=== PATIENT | female | born 1980 | race Caucasian/White ===

== ENCOUNTER 2016-10-26 15:11 | Emergency (ER) | payer MEDICAID ==
[~2016-10-26] VITALS: Ht 165.1 cm; Wt 104.3 kg
[~2016-10-26 15:11] MED LIST: BUTA1CAP45 PO; DOCU100C37 PO; HYDR-757 PO; IBUP-1773 PO; ONDA4TAB8 PO; ONDA4TAB8 SL; ONDA8TAB9 PO; OXYC-465 PO; PREN-98 PO; PROM25SU43 RC; PROM25TA14 PO; ZOLM5TAB8 PO
[2016-10-26] MEDS ORDERED: DEPAKOTE (15:29)
[2016-10-26] MEDS ORDERED: SUMA50TA2 (15:29)
[2016-10-26] MEDS ORDERED: PROMETHAZINE INJ 25 MG/ML (PHENERGAN) AMP IVP STA (15:36)
[2016-10-26] MEDS ORDERED: diphenhydrAMINE 50 MG/ML INJ (BENADRYL) IV STA (15:36)
[2016-10-26] MEDS ORDERED: DEXAMETHASONE PF 10 MG/ML (DECADRON) VIAL IV STA (15:36)
--- NOTE | 2016-10-26 15:41 | ED Headache ---
General Chief Complaint: Head/Cervical Problems Stated Complaint: MIGRAINE Nursing Triage Note: PT TO ED 9 W/ C/O [place] ONSET THIS AM. DOES C/O SENSITIVITY TO LIGHT ET SOUND, N/V Nursing Sepsis Screen: No Definite Risk Source: patient Exam Limitations: no limitations (SARAH VALDEZ MD) History of Present Illness Time seen by provider: 15:30 Initial Comments Here with complaint of headache and photophobia that is typical for her migraines. She has not had one in some time. She states that it usually is improved with her typical home medicines but not today. She started her period last night and thinks that may be the cause as it typically was previously. States that Zofran and Toradol increase her headache and asked not to have those. Denies fever or chills. Reports vomiting and does have some nausea. Timing/Duration: 1-3 hours Severity/Quality: moderate, severe, pressure, throbbing Location: frontal Prior Headaches/Recent Trauma: occasional headaches Associated Symptoms: No confusion, No facial pain, No fever/chills, nausea/ vomitingNo nasal congestion, No sinus infection, No stiff neck, No vision changes, No weakness (SARAH VALDEZ MD) Allergies and Home Medications Allergies Coded Allergies: Penicillins (Verified Allergy, Unknown, 12/02/05) aspirin (Verified Allergy, Unknown, 12/02/05) Uncoded Allergies: ADHESIVE TAPE (Allergy, Unknown, 03/06/06) Home Medications (Reported) Promethazine HCl 25 Mg Tablet #10 25 MG PO Q6H PRN PRN NAUSEA/VOMITING Prescribed by: SUMI JUAREZ on 10/26/16 182 Sumatriptan Succinate 50 Mg Tablet #9 (Reported) Constitutional: see HPINo chills, No fever Eyes: See HPIDenies Decreased Acuity, Photophobia Ears, Nose, Mouth, Throat: no symptoms reported Respiratory: no symptoms reported Cardiovascular: no symptoms reported Gastrointestinal: see HPI nausea vomiting Genitourinary: no symptoms reported LMP: Oct 25, 2016 Musculoskeletal: no symptoms reported (SARAH VALDEZ MD) All Other Systems Reviewed Negative Unless Noted: Yes (SARAH VALDEZ MD) Past Nqzaipy-Rwvbxl-Tfpebg Hx Patient Social History Alcohol Use: Denies Use Recreational Drug Use: No Smoking Status: Never a Smoker Recent Foreign Travel: No Contact w/Someone Who Travel: No Recent Infectious Disease Expo: No Recent Hopitalizations: No Physical Abuse Screen: No Sexual Abuse: No (SARAH VALDEZ MD) Immunizations Up To Date Tetanus Booster (TDap): Unknown PED Vaccines UTD: No (SARAH VALDEZ MD) Surgeries HX Surgeries: Yes (D AND C, EGD) (SARAH VALDEZ MD) Respiratory Hx Respiratory Disorders: No (SARAH VALDEZ MD) Cardiovascular Hx Cardiac Disorders: No (SARAH VALDEZ MD) Neurological Hx Neurological Disorders: Yes Neurological Disorders: Headaches /Migraines (SARAH VALDEZ MD) 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 System Hx 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 Disorders: No Sexually Transmitted Disease: No HIV/AIDS: No Female 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 (SARAH VALDEZ MD) Genitourinary Hx Genitourinary Disorders: No (SARAH VALDEZ MD) Gastrointestinal Hx Gastrointestinal Disorders: No (SARAH VALDEZ MD) Musculoskeletal Hx Musculoskeletal Disorders: No (SARAH VALDEZ MD) Endocrine Hx Endocrine Disorders: No (SARAH VALDEZ MD) HEENT HX ENT Disorders: No (SARAH VALDEZ MD) Cancer Hx Cancer: No (SARAH VALDEZ MD) Psychosocial Hx Psychiatric Problems: No (SARAH VALDEZ MD) Integumentary HX Skin/Integumentary Disorder: No (SARAH VALDEZ MD) Blood Transfusions Hx Blood Disorders: No Adverse Reaction to a Blood Tr: No (SARAH VALDEZ MD) Reviewed Nursing Assessment Reviewed/Agree w Nursing PMH: Yes (SARAH VALDEZ MD) Family Medical History Significant Family History: No Pertinent Family Hx Family Medial History: Diabetes mellitus 19 MOTHER Hypertension 19 MOTHER (SARAH VALDEZ MD) Family Medial History: Diabetes mellitus 19 MOTHER Hypertension 19 MOTHER (SUMI HILL MD) Physical Exam Vital Signs Vital Sign - Last 12Hours 10/26/16 15:18 Temp 97.3 Pulse 72 Resp 20 B/P 130/71 Pulse Ox 97 O2 Delivery Room Air (SUMI HILL MD) Vital Signs Capillary Refill : Less Than 3 Seconds (SARAH VALDEZ MD) General Appearance: WD/WN no apparent distress HEENT: PERRL/EOMI pharynx normal Neck: full range of motion supple Cardiovascular: regular rate, rhythm no murmur Respiratory: lungs clear no accessory muscle use Gastrointestinal: non tender soft Back: normal inspection no CVA tenderness no vertebral tenderness Extremities: non-tender normal inspection Psychiatric: alert oriented x 3 Crainal Nerves: normal hearing normal speech PERRL Coordination/Gait: normal gait Motor/Sensory: no motor deficit no sensory deficit Skin: normal color warm/dry (SARAH VALDEZ MD) Progress/Results/Core Measures Results/Orders My Orders Orders-SUMI HILL MD Hydrocodone/Apap 5/325 Tablet (Lortab 5 (10/26/16 18:30) (SUMI HILL MD) Medications Given in ED Current Medications Medications Dose Ordered Sig/Jamal Route Start Time Stop Time Status Last Admin Dose Admin Fentanyl Citrate 50 mcg ONCE ONCE IVP 10/26/16 17:45 10/26/16 17:46 DC 10/26/16 17:44 50 MCG Promethazine HCl 12.5 mg ONCE ONCE IVP 10/26/16 17:45 10/26/16 17:46 DC 10/26/16 17:43 12.5 MG Sodium Chloride 1,000 ml @ 0 mls/hr Q0M ONCE IV 10/26/16 15:36 10/26/16 15:39 DC 10/26/16 17:11 1,000 MLS/HR (SUMI HILL MD) Medications Given in ED Current Medications Medications Dose Ordered Sig/Jamal Route Start Time Stop Time Status Last Admin Dose Admin Sodium Chloride 1,000 ml @ 0 mls/hr Q0M ONCE IV 10/26/16 15:36 10/26/16 15:39 DC 10/26/16 15:44 1,000 MLS/HR (SARAH VALDEZ MD) Vital Signs/I&O Vital Sign - Last 12Hours 10/26/16 15:18 Temp 97.3 Pulse 72 Resp 20 B/P 130/71 Pulse Ox 97 O2 Delivery Room Air (SUMI HILL MD) Blood Pressure Mean: 90 Progress Note : Progress Note Seen and evaluated. IV, normal saline 1 L bolus, Phenergan 25 mg IV, Benadryl 50 mg IV and Decadron 10 mg IV ordered. Monitor patient. (SARAH VALDEZ MD) Progress Note #1: Time: 18:20 Progress Note This patient was initially seen and cared for by Dr. Valdez who transfered care to Dr. Ling. The initial IM medications provided insufficient relief. There were initial IV access problems but an IV was eventually established. Additional medications and IV fluids were ordered. Patient is feeling significantly improved at this time. She believes she can return home and rest. When her IV fluids are complete, she will be discharged. An additional hydrocodone will be provided before dismissal to help her get through the evening. Progress Note #2: Time: 18:38 Progress Note Patient is now complaining of worsening headache and nausea. She wants IV pain medications. An additional dose of fentanyl 50 g and Reglan 5 mg be administered IV. (SUMI HILL MD) Departure Impression Impression: Primary Impression: Migraine headache Qualified Code: G43.909 - Migraine, unspecified, not intractable, without status migrainosus Additional Impression: Nausea and vomiting Qualified Code: R11.2 - Nausea with vomiting, unspecified Disposition: 01 HOME, SELF-CARE Condition: Improved Departure-Patient Inst. Decision time for Depature: 20:20 (SUMI HILL MD) Referrals: YOVANY LA MD (PCP/Family) Primary Care Physician Patient Instructions: Migraine Headache (DC) Add. Discharge Instructions: Continue with your treatment plan as previously directed by your neurologist. Follow-up with your neurologist and/or primary care provider as soon as possible. Return to the ER if symptoms worsen. All discharge instructions reviewed with patient and/or family. Voiced understanding. Scripts Promethazine HCl (Promethazine Tablet)25 Mg [id number] Mg PO Q6H PRN NAUSEA/ VOMITING #10 TAB Prov:SUMI HILL MD 10/26/16 SARAH VALDEZ MD Oct 26, 2016 15:41 SUMI HILL MD Oct 26, 2016 18:26
[2016-10-26] MEDS: NS IV 1000 ML 1,000 ML IV ONE ×3 (15:44→17:11)
[2016-10-26] MEDS ORDERED: fentaNYL INJECTION 100 MCG/2 ML AMP ONE (17:38)
[2016-10-26] MEDS ORDERED: PROMETHAZINE INJ 25 MG/ML (PHENERGAN) AMP IVP ONE (17:45)
[2016-10-26] MEDS ORDERED: fentaNYL INJECTION 100 MCG/2 ML AMP IVP ONE ×2 (17:45→18:45)
[2016-10-26] MEDS ORDERED: PROM25TA14 PO (18:26)
[2016-10-26] MEDS ORDERED: HYDROcodone/APAP 5 MG/325 MG (LORTAB) TAB PO ONE (18:30)
[2016-10-26] MEDS ORDERED: METOCLOPRAMIDE INJ 10 MG/2 ML (REGLAN) IVP ONE (18:45)
[2016-10-26 19:09] VITALS: BP 120/72
== END 2016-10-26 19:09 | disposition home or self-care (01) ==
LOC: EDUNIT# 15:11 → ER 15:12
DX: G43.909 Migraine, unspecified, not intractable, without status migrainosus (principal); R11.2 Nausea with vomiting, unspecified
CPT/HCPCS: 96361; 96372; 96374; 96375; 96376

== ENCOUNTER 2016-11-23 09:44 | Emergency (ER) | payer MEDICAID ==
[~2016-11-23] VITALS: Ht 165.1 cm; Wt 104.3 kg
[~2016-11-23 09:44] MED LIST changes: +DEPAKOTE; +SUMA50TA2
[2016-11-23] MEDS ORDERED: IBUP-1780 PO (10:01)
[2016-11-23] MEDS ORDERED: ACET325T38 PO (10:01)
[2016-11-23] MEDS ORDERED: NS IV 1000 ML 1,000 ML IV ONE (10:13)
[2016-11-23] MEDS ORDERED: fentaNYL INJECTION 100 MCG/2 ML AMP IVP ONE ×2 (10:15→11:30)
[2016-11-23] MEDS ORDERED: diphenhydrAMINE 50 MG/ML INJ (BENADRYL) IVP ONE (10:15)
[2016-11-23] MEDS ORDERED: PROMETHAZINE INJ 25 MG/ML (PHENERGAN) AMP IVP ONE ×2 (10:15→11:30)
--- NOTE | 2016-11-23 11:43 | ED Headache ---
General Chief Complaint: Head/Cervical Problems Stated Complaint: MIGRAINE/VOMITING Nursing Triage Note: c/o "migraine" headache. Onset 0330 this morning. Describes pain as stabbing and is present behind left eye. Nausea/vomiting. Pt awake, alert, and active. Nursing Sepsis Screen: No Definite Risk Exam Limitations: no limitations History of Present Illness Time seen by provider: 10:08 Initial Comments This 35-year-old young lady with a history of migraines woke this morning with intense headache as 03:00. She has associated nausea and vomiting. She took Imitrex at home without benefit. She also took ibuprofen 800 mg at approximately 05:30. She reports her neurologist recently took her off Depakote because it was felt to be increasing headaches. She stopped 2 days ago. She was to replace Depakote with Neurontin but she has not had a chance to fill that medication yet. Allergies and Home Medications Allergies Coded Allergies: Penicillins (Verified Allergy, Unknown, 12/02/05) aspirin (Verified Allergy, Unknown, 12/02/05) ondansetron (Verified Allergy, Unknown, 11/23/16) Claims Zofran makes her "vomit more" ketorolac (Unverified Adverse Reaction, Unknown, 11/23/16) Claims Toradol intensifies migraine Uncoded Allergies: ADHESIVE TAPE (Allergy, Unknown, 03/06/06) Home Medications Acetaminophen 325 Mg Tablet 620 MG PO (Reported) Ibuprofen 800 Mg Tablet 800 MG PO Q8H PRN PRN PAIN (Reported) Sumatriptan Succinate 50 Mg Tablet #9 (Reported) Constitutional: no symptoms reported Eyes: No Symptoms Reported Ears, Nose, Mouth, Throat: no symptoms reported Respiratory: no symptoms reported Cardiovascular: no symptoms reported Gastrointestinal: see HPI Genitourinary: no symptoms reported : No Musculoskeletal: no symptoms reported Skin: no symptoms reported Psychiatric/Neurological: See HPI Past Hdtqada-Suhrfg-Kbucxx Hx Patient Social History Alcohol Use: Denies Use Recreational Drug Use: No Smoking Status: Never a Smoker Recent Foreign Travel: No Contact w/Someone Who Travel: No Recent Infectious Disease Expo: No Recent Hopitalizations: No Immunizations Up To Date Tetanus Booster (TDap): Unknown PED Vaccines UTD: No Surgeries HX Surgeries: Yes (D AND C, EGD) Surgeries: Tubal Ligation Respiratory Hx Respiratory Disorders: No Cardiovascular Hx Cardiac Disorders: No Neurological Hx Neurological Disorders: Yes Neurological Disorders: Headaches /Migraines 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 System : No (LMP now) Hx 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 Disorders: No Sexually Transmitted Disease: No HIV/AIDS: No Female 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 Genitourinary Hx Genitourinary Disorders: No Gastrointestinal Hx Gastrointestinal Disorders: No Musculoskeletal Hx Musculoskeletal Disorders: No Endocrine Hx Endocrine Disorders: No HEENT HX ENT Disorders: No Cancer Hx Cancer: No Psychosocial Hx Psychiatric Problems: No Integumentary HX Skin/Integumentary Disorder: No Blood Transfusions Hx Blood Disorders: No Adverse Reaction to a Blood Tr: No Family Medical History Significant Family History: No Pertinent Family Hx Family Medial History: Diabetes mellitus 19 MOTHER Hypertension 19 MOTHER Physical Exam Vital Signs Vital Sign - Last 12Hours 11/23/16 09:52 Temp 97.6 Pulse 65 Resp 16 B/P 129/76 Pulse Ox 100 Capillary Refill : Less Than 3 Seconds General Appearance: WD/WN mild distress HEENT: PERRL/EOMI normal ENT inspection pharynx normal Neck: normal inspection Cardiovascular: regular rate, rhythm no edema no murmur Respiratory: lungs clear normal breath sounds no respiratory distress no accessory muscle use Gastrointestinal: normal bowel sounds soft Extremities: normal inspection no pedal edema Psychiatric: alert oriented x 3 Crainal Nerves: normal hearing normal speech PERRL Motor/Sensory: no motor deficit no sensory deficit Skin: normal color warm/dry Progress/Results/Core Measures Results/Orders My Orders Orders-SUMI HILL MD Promethazine Injection (Phenergan Injec (11/23/16 10:15) Diphenhydramine Injection (Benadryl Inje (11/23/16 10:15) Fentanyl Injection (Sublimaze Injection (11/23/16 10:15) Saline Lock/Iv-Start (11/23/16 10:13) Ns Iv 1000 Ml (Sodium Chloride 0.9%) (11/23/16 10:13) Promethazine Injection (Phenergan Injec (11/23/16 11:30) Fentanyl Injection (Sublimaze Injection (11/23/16 11:30) Gabapentin Capsule/Tablet (Neurontin Cap (11/23/16 12:15) Methylprednisolone Sod Succ (Solu-Medrol (11/23/16 12:15) Medications Given in ED Current Medications Medications Dose Ordered Sig/Jamal Route Start Time Stop Time Status Last Admin Dose Admin Diphenhydramine HCl 25 mg ONCE ONCE IVP 11/23/16 10:15 11/23/16 10:16 DC 11/23/16 10:29 25 MG Fentanyl Citrate 50 mcg ONCE ONCE IVP 11/23/16 11:30 11/23/16 11:31 DC 11/23/16 11:28 50 MCG Fentanyl Citrate 50 mcg 50 mcg ONCE ONCE IVP 11/23/16 10:15 11/23/16 10:16 DC 11/23/16 10:29 50 MCG Promethazine HCl 25 mg ONCE ONCE IVP 11/23/16 10:15 11/23/16 10:16 DC 11/23/16 10:29 25 MG Promethazine HCl 25 mg ONCE ONCE IVP 11/23/16 11:30 11/23/16 11:31 DC 11/23/16 11:28 25 MG Sodium Chloride 1,000 ml @ 0 mls/hr Q0M ONCE IV 11/23/16 10:13 11/23/16 10:15 DC 11/23/16 10:30 1,000 MLS/HR Vital Signs/I&O Vital Sign - Last 12Hours 11/23/16 11/23/16 11/23/16 09:52 10:29 11:28 Temp 97.6 97.6 97.6 Pulse 65 Resp 16 B/P 129/76 Pulse Ox 100 Blood Pressure Mean: 93 Progress Note #1: Time: 11:38 Progress Note Patient had received Phenergan 25 mg, Benadryl 25 mg, fentanyl 50 g, and about 500 mL of normal saline. Despite these measures she still complained of headache and was vomiting. She maintains that Toradol and Zofran make her symptoms worse. Another 25 mg of Phenergan was ordered along with another 50 g of fentanyl. Progress Note #2: Time: 12:12 Progress Note Symptoms are now much improved. Patient will be given a dose of Solu-Medrol to help prevent rebound of headache. She will also be started on the gabapentin as prescribed by her neurologist. Departure Impression Impression: Primary Impression: Migraine headache Qualified Code: G43.909 - Migraine, unspecified, not intractable, without status migrainosus Additional Impression: Nausea and vomiting Qualified Code: R11.2 - Nausea with vomiting, unspecified Disposition: 01 HOME, SELF-CARE Condition: Improved Departure-Patient Inst. Decision time for Depature: 12:10 Referrals: YOVANY LA MD (PCP/Family) Primary Care Physician Patient Instructions: Migraine Headache (DC) Add. Discharge Instructions: Return home and rest in a quiet, dark, calm environment for the rest of the day. You may continue to use ibuprofen and Imitrex as previously prescribed. Stay well-hydrated. Contact your neurologist for further questions or concerns about your migraines. All discharge instructions reviewed with patient and/or family. Voiced understanding. Scripts Promethazine HCl (Promethazine Tablet)25 Mg [id number] Mg PO Q6H PRN NAUSEA/ VOMITING #10 TAB Prov:SUMI HILL MD 11/23/16 SUMI HILL MD Nov 23, 2016 11:43
[2016-11-23] MEDS ORDERED: methylPREDNISolone 125 MG (Solu-MEDROL) VIAL IVP ONE (12:15)
[2016-11-23] MEDS ORDERED: GABAPENTIN 100 MG (NEURONTIN) CAP PO ONE (12:15)
[2016-11-23] MEDS ORDERED: PROM25TA14 PO (12:16)
[2016-11-23 12:17] VITALS: BP 124/83
== END 2016-11-23 12:47 | disposition home or self-care (01) ==
LOC: EDUNIT# 09:44 → ER 09:46
DX: G43.909 Migraine, unspecified, not intractable, without status migrainosus (principal); R11.2 Nausea with vomiting, unspecified
CPT/HCPCS: 96361; 96374; 96375; 96376

== ENCOUNTER 2017-02-10 23:49 | Inpatient (IN) | payer MEDICAID ==
[~2017-02-10] VITALS: Ht 165.1 cm; Wt 107.6 kg
[~2017-02-10 23:49] MED LIST changes: +ACET325T38 PO; +IBUP-1780 PO; -SUMA50TA2; +SUMA50TA2 PO
[2017-02-11] MEDS ORDERED: LACTATED RINGERS 1,000 ML IV ONE ×3 (00:02→12:02)
[2017-02-11] MEDS ORDERED: PANTOPRAZOLE 40 MG/10 ML (PROTONIX) VIAL ONE (00:13)
[2017-02-11] MEDS ORDERED: HYOSCYAMINE 0.125 MG (LEVSIN) TAB ONE ×2 (00:13→00:14)
[2017-02-11 00:18] LABS: BASOPHILS % (AUTO) 0 % (0-10); EOSINOPHILS % (AUTO) 0 % (0-10); LYMPHOCYTES # (AUTO) 4.3 X 10^3 (1.0-4.0); LYMPHOCYTES % (AUTO) 22 % (12-44); MEAN CORPUSCULAR HEMOGLOBIN 27 PG (25-34); MEAN CORPUSCULAR HGB CONC 33 G/DL (32-36); MEAN CORPUSCULAR VOLUME 81 FL (80-99); MEAN PLATELET VOLUME 10.8 FL (7.4-10.4); MONOCYTES # (AUTO) 1.1 X 10^3 (0.0-1.0); MONOCYTES % (AUTO) 5 % (0-12); NEUTROPHILS # (AUTO) 14.6 X 10^3 (1.8-7.8); NEUTROPHILS % (AUTO) 73 % (42-75); PLATELET COUNT 314 10^3/uL (130-400); RED BLOOD COUNT 4.93 10^6/uL (4.35-5.85); WHITE BLOOD COUNT 20.1 10^3/uL (4.3-11.0)
[2017-02-11] MEDS ORDERED: KETOROLAC 30 MG/ML VIAL IVP ONE (00:30)
[2017-02-11] MEDS ORDERED: HYOSCYAMINE 0.125 MG (LEVSIN) TAB PO ONE (00:30)
[2017-02-11] MEDS ORDERED: PANTOPRAZOLE 40 MG/10 ML (PROTONIX) VIAL IV ONE (00:30)
[2017-02-11 00:35] LABS: BILIRUBIN,URINE NEGATIVE (NEGATIVE); CALCIUM OXALATE CRYSTALS,UR MODERATE /LPF; KETONES,URINE 1+ (NEGATIVE); LEUKOCYTE ESTERASE ,URINE 1+ (NEGATIVE); NITRITE,URINE NEGATIVE (NEGATIVE); PH,URINE 5 (5-9); PROTEIN,URINE 1+ (NEGATIVE); UROBILINOGEN,URINE 1 MG/DL (NORMAL); WBC,URINE 0-2 /HPF
[2017-02-11 00:38] LABS: ALANINE AMINOTRANSFERASE 22 U/L (0-55); ALBUMIN 3.9 G/DL (3.2-4.5); AMYLASE 36 U/L (25-125); ANION GAP 12 MMOL/L (5-14); ASPARTATE AMINO TRANSFERASE 19 U/L (5-34); BILIRUBIN,TOTAL 0.3 MG/DL (0.1-1.0); BLOOD UREA NITROGEN 14 MG/DL (7-18); BUN/CREATININE RATIO 18; CALCIUM 9.5 MG/DL (8.5-10.1); CARBON DIOXIDE 21 MMOL/L (21-32); CHLORIDE 110 MMOL/L (98-107); CREATININE SERUM 0.78 MG/DL (0.60-1.30); GFR ESTIMATED > 60; GLUCOSE 115 MG/DL (70-105); LIPASE 45 U/L (8-78); POTASSIUM 3.8 MMOL/L (3.6-5.0); SODIUM 143 MMOL/L (135-145); TOTAL PROTEIN 6.5 G/DL (6.4-8.2)
[2017-02-11 00:39] LABS: ALCOHOL < 10 MG/DL (<10); LYMPHOCYTES % (MANUAL) 22 %; NEUTROPHILS % (MANUAL) 74 %
--- NOTE | 2017-02-11 00:51 | ED Abdominal Pain ---
General Chief Complaint: Abdominal/GI Problems Stated Complaint: UPPER AB PAIN Nursing Triage Note: pt reports having mothers day meat at approx 1800 and epigastric pain starting at 2029. states pain is sharp and constant, and has vomit x 1. denies diarrhea or any other complaints at this time. pt brought to exam room per wc, moaning in pain. Sepsis Screen: No Definite Risk Source of Information: Patient History of Present Illness Time Seen By Provider: 23:59 Initial Comments PT C/O SEVERE UPPER ABDOMINAL / EPIGASTRIC PAIN SINCE 2029 TONIGHT PAIN IS SHARP AND CONSTANT ATE HOT DOGS AND [employer]Q BEANS AT 1830 TONIGHT C/O NAUSEA AND VOMITED X 1 NO DIARRHEA. HAD A NORMAL BM EARLIER TODAY NO FEVER NO URINARY SYMPTOMS LMP--BEGAN YESTERDAY AND CONTINUES TODAY. PT HAS HAD BTL NO HISTORY OF SIMILAR NO RELIEF WITH TUMS PT WITH MULTIPLE VISITS HERE WELL OTHER LOCAL ER'S --MOST FOR C/O HEADACHES PT STATES SHE HAD 2 TEETH PULLED ON Saturday02/08/17 AND THEN WENT TO [facility] THAT NIGHT FOR POST-EXTRACTION DENTAL PAIN PCP: DR. LA NEUROLOGIST: DR. DEE Allergies and Home Medications Allergies Coded Allergies: Penicillins (Verified Allergy, Unknown, 12/02/05) aspirin (Verified Allergy, Unknown, 12/02/05) Uncoded Allergies: ADHESIVE TAPE (Allergy, Unknown, 03/06/06) Home Medications Sumatriptan Succinate 50 Mg Tablet, #9 (Reported) Review of Systems Constitutional: no symptoms reported EENTM: Other (HAD 2 TEETH PULLED ON Saturday02/08/17) Respiratory: No Symptoms Reported Cardiovascular: No Symptoms Reported Gastrointestinal: See HPI, Abdominal Pain, Nausea, Vomiting Genitourinary: No Symptoms Reported Musculoskeletal: no symptoms reported Skin: no symptoms reported Psychiatric/Neurological: No Symptoms Reported Endocrine: No Symptoms Reported Hematologic/Lymphatic: No Symptoms Reported Past Twmccrf-Lpvxhk-Tbhoqg Hx Patient Social History Alcohol Use: Denies Use Recreational Drug Use: No Smoking Status: Never a Smoker 2nd Hand Smoke Exposure: No Recent Foreign Travel: No Contact w/Someone Who Travel: No Recent Infectious Disease Expo: No Recent Hopitalizations: No Immunizations Up To Date Tetanus Booster (TDap): Unknown PED Vaccines UTD: No Surgeries HX Surgeries: Yes (D AND C, EGD) Surgeries: Tubal Ligation Respiratory Hx Respiratory Disorders: No Cardiovascular Hx Cardiac Disorders: No Neurological Hx Neurological Disorders: Yes Neurological Disorders: Headaches /Migraines 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 System : No Hx 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 Disorders: No Sexually Transmitted Disease: No HIV/AIDS: No Female 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 Genitourinary Hx Genitourinary Disorders: No Gastrointestinal Hx Gastrointestinal Disorders: No Musculoskeletal Hx Musculoskeletal Disorders: No Endocrine Hx Endocrine Disorders: No HEENT HX ENT Disorders: No Cancer Hx Cancer: No Psychosocial Hx Psychiatric Problems: No Integumentary HX Skin/Integumentary Disorder: No Blood Transfusions Hx Blood Disorders: No Adverse Reaction to a Blood Tr: No Family Medical History Family Medial History: Diabetes mellitus 19 MOTHER Hypertension 19 MOTHER Physical Exam Vital Signs VS - Last 72 Hours, by Label 02/10/17 23:52 Temp 98.7 Pulse 91 Resp 20 B/P (MAP) 114/86 O2 Delivery Room Air Capillary Refill : Less Than 3 Seconds General Appearance: obese, other (EXTREMELY DRAMATIC--WAILING/MOANING VERY LOUDLY, THRASHING ALL OVER, HOLDING EPIGASTRIC AREA) HEENT: PERRL/EOMI Neck: normal inspection Respiratory: normal breath sounds, no respiratory distress, no accessory muscle use Cardiovascular: regular rate, rhythm, no murmur Gastrointestinal: normal bowel sounds, soft, no organomegaly, no pulsatile mass , No distended, guarding, No rebound, tenderness (DIFFUSE UPPER ABDOMINAL TENDERNESS), No hernia, No mass Extremities: normal inspection Back: no CVA tenderness 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, no motor/sensory deficits, alert, oriented x 3 Skin: normal color, warm/dry, No rash Progress/Results/Core Measures Results/Orders Lab Results Laboratory Tests Test 02/11/17 00:12 02/11/17 00:19 Range/Units White Blood Count 20.1 H 4.3-11.0 10^3/uL Red Blood Count 4.93 4.35-5.85 10^6/uL Hemoglobin 13.3 11.5-16.0 G/DL Hematocrit 40 35-52 % Mean Corpuscular Volume 81 80-99 FL Mean Corpuscular Hemoglobin 27 25-34 PG Mean Corpuscular Hemoglobin Concent 33 32-36 G/DL Red Cell Distribution Width 14.0 10.0-14.5 % Platelet Count 314 130-400 10^3/uL Mean Platelet Volume 10.8 H 7.4-10.4 FL Neutrophils (%) (Auto) 73 42-75 % Lymphocytes (%) (Auto) 22 12-44 % Monocytes (%) (Auto) 5 0-12 % Eosinophils (%) (Auto) 0 0-10 % Basophils (%) (Auto) 0 0-10 % Neutrophils # (Auto) 14.6 H 1.8-7.8 X 10^3 Lymphocytes # (Auto) 4.3 H 1.0-4.0 X 10^3 Monocytes # (Auto) 1.1 H 0.0-1.0 X 10^3 Eosinophils # (Auto) 0.0 0.0-0.3 10^3/uL Basophils # (Auto) 0.0 0.0-0.1 10^3/uL Neutrophils % (Manual) 74 % Lymphocytes % (Manual) 22 % Monocytes % (Manual) 4 % Blood Morphology Comment NORMAL Sodium Level 143 135-145 MMOL/L Potassium Level 3.8 3.6-5.0 MMOL/L Chloride Level 110 H 98-107 MMOL/L Carbon Dioxide Level 21 21-32 MMOL/L Anion Gap 12 5-14 MMOL/L Blood Urea Nitrogen 14 7-18 MG/DL Creatinine 0.78 0.60-1.30 MG/DL Estimat Glomerular Filtration Rate > 60 BUN/Creatinine Ratio 18 Glucose Level 115 H 70-105 MG/DL Calcium Level 9.5 8.5-10.1 MG/DL Total Bilirubin 0.3 0.1-1.0 MG/DL Aspartate Amino Transf (AST/SGOT) 19 5-34 U/L Alanine Aminotransferase (ALT/SGPT) 22 0-55 U/L Alkaline Phosphatase 80 40-136 U/L Total Protein 6.5 6.4-8.2 G/DL Albumin 3.9 3.2-4.5 G/DL Amylase Level 36 25-125 U/L Lipase 45 8-78 U/L Serum Alcohol < 10 <10 MG/DL Urine Color YELLOW Urine Clarity SLIGHTLY CLOUDY Urine pH 5 5-9 Urine Specific [place] 1.025 H 1.016-1.022 Urine Protein 1+ H NEGATIVE Urine Glucose (UA) NEGATIVE NEGATIVE Urine Ketones 1+ H NEGATIVE Urine Nitrite NEGATIVE NEGATIVE Urine Bilirubin NEGATIVE NEGATIVE Urine Urobilinogen 1 NORMAL MG/DL Urine Leukocyte Esterase 1+ H NEGATIVE Urine RBC (Auto) 5+ H NEGATIVE Urine RBC 2-5 H /HPF Urine WBC 0-2 /HPF Urine Squamous Epithelial Cells 10-25 H /HPF Urine Crystals PRESENT H /LPF Urine Calcium Oxalate Crystals MODERATE H /LPF Urine Bacteria TRACE /HPF Urine Casts NONE /LPF Urine Mucus NEGATIVE /LPF Urine Culture Indicated NO Urine Opiates Screen POSITIVE H NEGATIVE Urine Oxycodone Screen NEGATIVE NEGATIVE Urine Methadone Screen NEGATIVE NEGATIVE Urine Propoxyphene Screen NEGATIVE NEGATIVE Urine Barbiturates Screen NEGATIVE NEGATIVE Ur Tricyclic Antidepressants Screen NEGATIVE NEGATIVE Urine Phencyclidine Screen NEGATIVE NEGATIVE Urine Amphetamines Screen NEGATIVE NEGATIVE Urine Methamphetamines Screen NEGATIVE NEGATIVE Urine Benzodiazepines Screen NEGATIVE NEGATIVE Urine Cocaine Screen NEGATIVE NEGATIVE Urine Cannabinoids Screen NEGATIVE NEGATIVE My Orders Orders - IRIS SEXTON K DO Saline Lock/Iv-Start (02/11/17 00:02) Urine Bedside (02/11/17 00:02) Alcohol (02/11/17 00:02) Amylase (02/11/17 00:02) Cbc With Automated Diff (02/11/17 00:02) Comprehensive Metabolic Panel (02/11/17 00:02) Drug Screen Stat (Urine) (02/11/17 00:02) Lipase (02/11/17 00:02) Ua Culture If Indicated (02/11/17 00:02) Saline Lock/Iv-Start (02/11/17 00:02) Lactated Ringers (Lr 1000 Ml Iv Solution (02/11/17 00:02) Hyoscyamine Sl Tablet (Levsin Sl Tablet) (02/11/17 00:30) Pantoprazole Injection (Protonix Injecti (02/11/17 00:30) Pantoprazole Injection (Protonix Injecti (02/11/17 00:13) Hyoscyamine Sl Tablet (Levsin Sl Tablet) (02/11/17 00:13) Hyoscyamine Sl Tablet (Levsin Sl Tablet) (02/11/17 00:14) Manual Differential (02/11/17 00:12) Ketorolac Injection (Toradol Injection) (02/11/17 00:30) Ct Abdomen/Pelvis W (02/11/17 00:29) Acute Abd Series (02/11/17 00:29) Fentanyl Injection (Sublimaze Injection (02/11/17 02:24) Fentanyl Injection (Sublimaze Injection (02/11/17 03:03) Fentanyl Injection (Sublimaze Injection (02/11/17 03:15) Medications Given in ED Current Medications Medications Dose Ordered Sig/Jamal Route Start Time Stop Time Status Last Admin Dose Admin Fentanyl Citrate 50 mcg ONCE ONCE IVP 02/11/17 03:15 02/11/17 03:16 DC 02/11/17 03:04 50 MCG Hyoscyamine Sulfate 0.25 mg ONCE ONCE PO 02/11/17 00:30 02/11/17 00:31 DC 02/11/17 00:21 0.25 MG Ketorolac Tromethamine 30 mg ONCE ONCE IVP 02/11/17 00:30 02/11/17 00:31 DC 02/11/17 00:36 30 MG Lactated Ringer's 1,000 ml @ 0 mls/hr Q0M ONCE IV 02/11/17 00:02 02/11/17 00:05 DC 02/11/17 00:22 0 MLS/HR Pantoprazole 40 mg ONCE ONCE IV 02/11/17 00:30 02/11/17 00:31 DC 02/11/17 00:21 40 MG Vital Signs/I&O Vital Sign - Last 12Hours 02/10/17 23:52 Temp 98.7 Pulse 91 Resp 20 B/P (MAP) 114/86 O2 Delivery Room Air Blood Pressure Mean: 95 Point of Care Testing Urine -Bedside: Negative Progress Note : Progress Note NAUSEA IMPROVED WITH ZOFRAN NO IMPROVEMENT IN PAIN WITH TORADOL AND FENTANYL MODERATE IMPROVEMENT IN PAIN WITH MORPHINE, BUT PAIN IS STILL PRESENT Diagnostic Imaging Comments CT ABDOMEN/PELVIS--DISTENDED GALLBLADDER, WITHOUT SECONDARY INFLAMMATORY CHANGES --PER [facility] VIA FAX @ [id number] Reviewed: Reviewed by Me Departure Communication Progress Notes [id number]--SPOKE WITH DR. REYNA, ACCEPTS PT FOR ADMIT. Impression Impression: Primary Impression: Biliary colic Additional Impression: Intractable abdominal pain Disposition: ADMITTED INPATIENT Condition: Improved Decision to Admit Reason: Admit from ER (General) Decision to Admit/Date: February 11, 2017 Time/Decision to Admit Time: 03:30 Departure-Patient Inst. Referrals: YOVANY LA MD (PCP/Family) Primary Care Physician IRIS SEXTON DO February 11, 2017 00:51
[2017-02-11] MEDS ORDERED: fentaNYL INJECTION 100 MCG/2 ML AMP IVP STA ×2 (02:24→03:03)
[2017-02-11] MEDS ORDERED: fentaNYL INJECTION 100 MCG/2 ML AMP IVP ONE (03:15)
[2017-02-11] MEDS ORDERED: morphine INJ 10 MG/ML 1ML (SYR OR VIAL) ONE ×2 (03:32→08:10)
[2017-02-11] MEDS ORDERED: morphine INJ 10 MG/ML 1ML (SYR OR VIAL) IVP STA (03:33)
[2017-02-11 04:25] VITALS: BP 121/74
[2017-02-11] MEDS ORDERED: morphine INJ 5 MG/ML 1 ML VIAL IVP PRN (05:30)
[2017-02-11] MEDS: LACTATED RINGERS 1,000 ML IV SCH ×4 (05:37→23:33)
[2017-02-11] MEDS ORDERED: KETOROLAC 30 MG/ML VIAL IV PRN (06:30)
[2017-02-11] MEDS ORDERED: CATHETER FLUSH 10 ML SYR IV PRN (06:30)
[2017-02-11] MEDS: PANTOPRAZOLE 40 MG/10 ML (PROTONIX) VIAL IV SCH (07:30)
[2017-02-11 08:00] VITALS: BP 124/79
--- NOTE | 2017-02-11 08:11 | Diagnostic Imaging Report ---
INDICATION: Epigastric pain TECHNIQUE: Single view chest with supine and upright radiographs of the abdomen. CORRELATION STUDY: Chest 07/06/2016 FINDINGS: Frontal radiograph of the chest demonstrates no acute abnormality. Supine and upright radiographs of the abdomen demonstrates the bowel gas pattern to be unremarkable and without evidence for obstruction. No free air is seen under the diaphragms. No pathologic intraabdominal calcifications. Asymmetrically elevated right diaphragm. IMPRESSION: 1. Negative for acute cardiopulmonary abnormality. 2. Unremarkable appearing bowel gas pattern. Dictated by: Dictated on workstation # [id number]
--- NOTE | 2017-02-11 08:13 | Diagnostic Imaging Report ---
PROCEDURE: CT abdomen and pelvis with contrast. TECHNIQUE: Multiple contiguous axial images were obtained through the abdomen and pelvis after administration of intravenous contrast. INDICATION: Epigastric pain. CORRELATION STUDY: 07/06/2016 FINDINGS: LOWER THORAX: Clear. LIVER: Borderline enlarged with likely geographic areas of fatty infiltration. GALLBLADDER: Distended but without otherwise secondary inflammatory changes. SPLEEN: Unremarkable. PANCREAS: Unremarkable. ADRENAL GLANDS: Unremarkable. KIDNEYS: Normal configuration. No calcification or obstruction. ABDOMINAL AORTA: Unremarkable, nonaneurysmal. GASTROINTESTINAL TRACT: No obstruction or inflammation. Normal appendix. Small fat-containing umbilical hernia. URINARY BLADDER: Unremarkable. REPRODUCTIVE: Uterus and adnexa unremarkable. Probable cervical nabothian cyst. OSSEOUS STRUCTURES: No acute abnormality. IMPRESSION: 1. Negative for acute abnormality of the abdomen or pelvis. 2. Distended gallbladder without additional inflammatory changes to suggest acute cholecystitis. Clinical correlation is recommended. 3. Borderline hepatomegaly with hepatic steatosis. Dictated by: Dictated on workstation # [id number]
[2017-02-11] MEDS: ONDANSETRON 4 MG/2 ML (SDV) Z0FRAN IV PRN ×2 (08:18→18:17)
[2017-02-11] MEDS: morphine INJ 10 MG/ML 1ML (SYR OR VIAL) IV PRN ×3 (08:18→23:34)
[2017-02-11] MEDS ORDERED: BUP/EPI 0.5% 1:200,000 (SENSORCAINE) 30 ML VIAL ONE (09:27)
[2017-02-11] MEDS ORDERED: LACTATED RINGERS 1,000 ML IV PRN (10:31)
[2017-02-11] MEDS ORDERED: MIDAZOLAM 2 MG/2 ML (VERSED) VIAL ONE (10:32)
[2017-02-11] MEDS ORDERED: fentaNYL INJECTION 250 MCG/5 ML AMP ONE (10:32)
[2017-02-11] MEDS ORDERED: proPOfol 200 MG/20 ML (DIPRIVAN) VIAL IV ONE (10:32)
[2017-02-11] MEDS ORDERED: ONDANSETRON 4 MG/2 ML (SDV) Z0FRAN ONE (10:38)
[2017-02-11] MEDS ORDERED: SEVOFLURANE (ULTANE) 15 ML INHAL SOLN ONE (10:38)
[2017-02-11] MEDS ORDERED: ROCURONIUM 50 MG/5 ML (ZEMURON) VIAL IV ONE (10:38)
[2017-02-11] MEDS ORDERED: LIDOCAINE PF 2% 10 ML (XYLOCAINE) AMP ONE (10:38)
[2017-02-11] MEDS ORDERED: DEXAMETHASONE PF 10 MG/ML (DECADRON) VIAL ONE (10:38)
--- NOTE | 2017-02-11 10:55 | Progress Note-Pre Operative ---
Pre-Operative Progress Note H&P Reviewed The H&P was reviewed, patient examined and no changes noted. Date H&P Reviewed: February 11, 2017 Time H&P Reviewed: 10:00 Pre-Operative Diagnosis: Chronic acalculous cholecystitis BRANDIE REYNA MD February 11, 2017 10:55
--- NOTE | 2017-02-11 11:08 | HISTORY AND PHYSICAL ---
DATE OF SERVICE: 02/11/2017 ATTENDING PRIMARY CARE PHYSICIAN: Dr. Maxim Vazquez The patient is a 36-year-old female who presented to [facility] Emergency Department early this morning for abdominal pain. She reports that the pain was more in the right upper abdominal quadrant and was sharp and constant. She also had reported episodes of nausea and vomiting following eating a meal. She states that she may have had some milder symptoms in the past; however, she felt this more likely due to peptic ulcer disease. A CT can was performed which did show dilatation of the gallbladder consistent with a chronic acalculous cholecystitis. She also did have elevation of white count; however, also does have an urinary tract infection. PAST MEDICAL HISTORY: Migraine headaches. PAST SURGICAL HISTORY: Tubal ligation, D and C. ALLERGIES: PENICILLIN, ASPIRIN, SOME TAPES. MEDICATIONS: Sumatriptan 50 mg daily. SOCIAL HISTORY: Negative smoke, negative alcohol. FAMILY HISTORY: Noncontributory. VITAL SIGNS: Temperature 98.7, blood pressure 114/86, pulse 91, respirations 20. REVIEW OF SYSTEMS: Well nourished female, currently in no acute distress. She denies any, shortness of breath or difficulty breathing. No chest pain, palpitations or diaphoresis. Intermittent episodes of nausea, as well as an episode of vomiting. No hematemesis. No coffee ground emesis. No diarrhea, constipation. No red blood per rectum or dark tarry stools. No fever, chills. No recent inadvertent weight loss. PHYSICAL EXAMINATION: CHEST: Clear. HEART: Regular. EXTREMITIES: No lower extremity edema. Negative Prmaod's sign. HEENT: No scleral icterus. No cervical lymphadenopathy. ABDOMEN: Soft, nondistended. There is pain in the right upper abdominal quadrant upon palpation with voluntary guarding. No rebound. LABS: WBC 20.1, hemoglobin 13.3, hematocrit 40, platelets 314. Total bilirubin 0.3, AST 19, ALT 22, alkaline phosphatase 80. UA: Leukocyte esterase 1+ with trace amount of bacteria. ASSESSMENT AND PLAN: A 36-year-old female with symptomatic chronic acalculous cholecystitis. The natural history of gallbladder disease was explained to the patient as it was including the risks and benefits of surgery. She is in full understanding of this and would like to proceed with laparoscopic cholecystectomy on this admission which we will schedule. Job ID: [id number] DocumentID: [id number] Dictated Date: 02/11/2017 10:52:19 Plastic Surgery Manager Date: 02/11/2017 11:08:39 Dictated By: BRANDIE REYNA MD MTDD
[2017-02-11] MEDS ORDERED: ceFAZolin 2 GM/50 ML NS 50 ML IV ONE (11:15)
[2017-02-11] MEDS ORDERED: ceFAZolin 1,000 MG (ANCEF) VIAL ONE (11:20)
[2017-02-11] MEDS ORDERED: NEOSTIGMINE (BLOXIVERZ ) 1 MG/1ML 10 ML VIAL ONE (12:02)
[2017-02-11] MEDS ORDERED: GLYCOPYRROLATE 0.2 MG/ML (ROBINUL) 2 ML VIAL ONE (12:02)
[2017-02-11] MEDS ORDERED: MEPERIDINE (DEMEROL) INJ 50 MG/ML IVP PRN (13:00)
[2017-02-11] MEDS ORDERED: ONDANSETRON 4 MG/2 ML (SDV) Z0FRAN IVP PRN (13:00)
--- NOTE | 2017-02-11 13:03 | Progress Note-Post Operative ---
Post-Operative Progess Note Surgeon (s)/Cable Television Technician (s) Surgeon BRANDIE REYNA MD Cable Television Technician: NONE Pre-Operative Diagnosis Chronic acalculous cholecystitis Post-Operative Diagnosis same Procedure & Operative Findings Date of Procedure 02/11/17 Procedure Preformed/Findings laparoscopic cholecystectomy Anesthesia Type GET Estimated Blood Loss Estimated blood loss (mL): minimal Specimens/Packing Specimens Removed gallbladder Packing: none BRANDIE REYNA MD February 11, 2017 1:02 pm
[2017-02-11] MEDS ORDERED: OXYC-197 PO (13:07)
--- NOTE | 2017-02-11 13:08 | Discharge Inst-Surgical ---
D/C Lap Instructions-AXEL New, Converted, or Re-Newed RX: RX on Chart Follow Up Appt in 2 weeks Activity as tolerated No driving for 24 hours No driving while on pain medications Incentive Spirometry use every 2 hours while awake Regular Diet Symptoms to Report: Fever over 101 degree F, Nausea/Vomiting Infection Signs and Symptoms to report: Increased redness, Foul odor of wound, Increased drainage Bathing instructions: May shower Operative Area Clean/Dry; Keep incision clean/dry If any problems/questions: Contact your physician or go to Emergency Room BRANDIE REYNA MD February 11, 2017 1:08 pm
[2017-02-11] MEDS: morphine INJ 10 MG/ML 1ML (SYR OR VIAL) IVP PRN ×2 (13:13→13:18)
[2017-02-11] MEDS ORDERED: MEPERIDINE (DEMEROL) INJ 50 MG/ML ONE (13:17)
[2017-02-11] MEDS: CATHETER FLUSH 10 ML SYR IV SCH ×2 (13:27→22:03)
[2017-02-11 16:00] VITALS: BP 112/71
[2017-02-11] MEDS: oxyCODONE/APAP 5/325MG (PERCOCET 5) TABLET PO PRN ×2 (17:48→22:08)
[2017-02-11 20:00] VITALS: BP 107/66
[2017-02-12 00:20] VITALS: BP 100/64
[2017-02-12 04:15] VITALS: BP 112/68
--- NOTE | 2017-02-12 04:39 | OPERATIVE REPORT ---
DATE OF SERVICE: 02/11/2017 ATTENDING PRIMARY CARE PHYSICIAN: Dr. Maxim Vazquez. PREOPERATIVE DIAGNOSIS: Chronic acalculous cholecystitis. POSTOPERATIVE DIAGNOSIS: Chronic acalculous cholecystitis. PROCEDURE: Laparoscopic cholecystectomy. SURGEON: Dr. Reyna. ANESTHESIA: General endotracheal. ESTIMATED BLOOD LOSS: Minimal. FINDINGS: Mild chronic inflammation and distention of the gallbladder. No stones identified. DISPOSITION: The patient tolerated the procedure well. The patient is a 36-year-old female who presented to [facility] emergency department earlier this morning for abdominal pain. She reports that this was accompanied by an episode of nausea and vomiting. She reports that the pain was sharp and did radiate toward the back and was located mostly in the right upper abdominal quadrant. She states that she has had some mild episodes in the past; however, thought that this was mostly due to peptic ulcer disease. A CT scan was performed which did show a distended gallbladder consistent with a chronic acalculous cholecystitis. DESCRIPTION OF PROCEDURE: The patient was brought to the operating room, laid supine on the table. After adequate IV pain and sedative medications and general endotracheal intubation, the abdomen was prepped and draped in standard surgical fashion. Marcaine 0.5% with epinephrine was then used to anesthetize the overlying skin in the left upper abdominal quadrant. A small transverse skin incision made using a 15 blade. An 0 silk suture was applied to the medial aspect of the incision for retraction and a Veress needle inserted with a low opening pressure of 0 mmHg and the abdomen was then insufflated to 15 mmHg pressure. The Veress needle removed and a 5 mm Xcel trocar placed followed by a 5 mm 45 degree angle laparoscope visualizing the peritoneal cavity. A four-quadrant abdominal exploration was performed. A dilated gallbladder was identified as well as chronic inflammatory changes as well as edema of the gallbladder wall. Under direct visualization, we then proceeded to place a supraumbilical 10 mm port after the skin and peritoneum were anesthetized using 0.5% Marcaine with epinephrine and a transverse skin incision made using a 15 blade. In a similar manner, a right upper abdominal quadrant 5 mm port was placed. The patient was then placed in reverse Trendelenburg position as well as planed right side up, left side down. The fundus of the gallbladder was then retracted anteriorly and superiorly. The hepatoduodenal ligament was then opened using the hook instrument as well as electrocautery. The entire critical view of safety was identified by identifying the triangle of Calot as well as the cystic duct and artery going into the gallbladder as well as the liver behind the proximal gallbladder. the cystic duct was then taken and the cystic duct and artery were then clipped proximally and distally and cut with EndoShears. The gallbladder was then dissected off the liver bed using electrocautery on the hook instrument with visualization, good hemostasis as well as no leaking ducts of Luschka. The gallbladder was removed through the 10 mm port site using an EndoCatch bag. The 10 mm port site, fascia and peritoneum were then closed under direct visualization using a Ashish-Marlin device and an 0 Vicryl suture. Abdomen was desufflated and remaining ports removed. All skin incisions were closed using 4-0 Monocryl running subcuticular sutures. Wounds were then cleaned and covered with Dermabond. The patient tolerated the procedure well. We will start IV and oral pain medication as well as a clear liquid diet. Once she is tolerating clears and has good pain control with oral pain medications and ambulating well, we will discharge her home. Job ID: [id number] DocumentID: [id number] Dictated Date: 02/11/2017 13:12:26 Sliver Chopper Date: 02/12/2017 04:39:07 Dictated By: BRANDIE REYNA MD
[2017-02-12 05:27] LABS: BASOPHILS % (AUTO) 0 % (0-10); EOSINOPHILS % (AUTO) 0 % (0-10); LYMPHOCYTES # (AUTO) 2.1 X 10^3 (1.0-4.0); LYMPHOCYTES % (AUTO) 16 % (12-44); MEAN CORPUSCULAR HEMOGLOBIN 27 PG (25-34); MEAN CORPUSCULAR HGB CONC 32 G/DL (32-36); MEAN CORPUSCULAR VOLUME 84 FL (80-99); MEAN PLATELET VOLUME 10.9 FL (7.4-10.4); MONOCYTES # (AUTO) 0.7 X 10^3 (0.0-1.0); MONOCYTES % (AUTO) 6 % (0-12); NEUTROPHILS # (AUTO) 10.3 X 10^3 (1.8-7.8); NEUTROPHILS % (AUTO) 79 % (42-75); PLATELET COUNT 230 10^3/uL (130-400); RED BLOOD COUNT 3.97 10^6/uL (4.35-5.85); RED CELL DISTRIBUTION WIDTH 14.1 % (10.0-14.5); WHITE BLOOD COUNT 13.1 10^3/uL (4.3-11.0)
[2017-02-12 05:53] LABS: ALANINE AMINOTRANSFERASE 90 U/L (0-55); AMYLASE 31 U/L (25-125); ANION GAP 7 MMOL/L (5-14); ASPARTATE AMINO TRANSFERASE 94 U/L (5-34); BILIRUBIN,TOTAL 0.5 MG/DL (0.1-1.0); BLOOD UREA NITROGEN 13 MG/DL (7-18); BUN/CREATININE RATIO 18; CALCIUM 8.5 MG/DL (8.5-10.1); CARBON DIOXIDE 26 MMOL/L (21-32); CHLORIDE 108 MMOL/L (98-107); CREATININE SERUM 0.71 MG/DL (0.60-1.30); GFR ESTIMATED > 60; GLUCOSE 129 MG/DL (70-105); LIPASE 36 U/L (8-78); SODIUM 141 MMOL/L (135-145); TOTAL PROTEIN 5.1 G/DL (6.4-8.2)
[2017-02-12] MEDS: CATHETER FLUSH 10 ML SYR IV SCH (06:47)
[2017-02-12 07:59] VITALS: BP 86/52
[2017-02-12] MEDS: PANTOPRAZOLE 40 MG/10 ML (PROTONIX) VIAL IV SCH (08:01)
[2017-02-12] MEDS: oxyCODONE/APAP 5/325MG (PERCOCET 5) TABLET PO PRN (10:26)
--- NOTE | 2017-02-12 11:36 | Anesthesia-General Post-Op ---
General Patient Condition Mental Status/LOC: Same as Preop Cardiovascular: Satisfactory Nausea/Vomiting: Absent Respiratory: Satisfactory Pain: Controlled Complications: Absent Post Op Complications Complications None Follow Up Care/Instructions Patient Instructions None needed. Anesthesia/Patient Condition Patient Condition Patient is doing well, no complaints, stable vital signs, no apparent adverse anesthesia problems. No complications reported per nursing. MICHELE MCGRAW CRNA February 12, 2017 11:36
== END 2017-02-12 10:30 | disposition home or self-care (01) | DRG 419 ==
LOC: EDUNIT# 23:49 → ER 23:52 → 4TH 02-11 03:30
PROVIDERS: ADMIT Surgery Pediatric Surgery; ATTEND Surgery Pediatric Surgery
PROC: 0FT44ZZ Resection of Gallbladder, Percutaneous Endoscopic Approach (ICD-10-PCS; principal; 2017-02-11 11:10)
DX: K80.10 Calculus of gallbladder with chronic cholecystitis without obstruction (principal)
CPT/HCPCS: 36415; 74022; 74177; 80053; 80306; 80320; 81000; 82150; 83690; 84703; 85007; 85025; 85027; 96361; 96374; 96375; 96376

== ENCOUNTER 2017-02-23 21:10 | Day surgery (SDC) | payer MEDICAID ==
[~2017-02-23] VITALS: Ht 165.1 cm; Wt 106.3 kg
[~2017-02-23 21:10] MED LIST changes: +OXYC-197 PO
[2017-02-23] MEDS ORDERED: fentaNYL INJECTION 100 MCG/2 ML AMP IVP ONE (21:15)
[2017-02-23] MEDS ORDERED: ONDANSETRON 4 MG/2 ML (SDV) Z0FRAN ONE (21:16)
[2017-02-23] MEDS ORDERED: ONDANSETRON 4 MG/2 ML (SDV) Z0FRAN IVP ONE (21:30)
[2017-02-23] MEDS ORDERED: LIDOCAINE 2% VISCOUS 15 ML UDC ONE (21:39)
[2017-02-23] MEDS ORDERED: ONDANSETRON 4 MG (ZOFRAN) ORAL DISSOLVE TAB ONE (21:39)
[2017-02-23] MEDS ORDERED: ANTACID SUSP 30 ML UDC (MYLANTA) ONE (21:40)
--- NOTE | 2017-02-23 21:42 | ED Abdominal Pain ---
General Chief Complaint: Abdominal/GI Problems Stated Complaint: ABD PAIN Nursing Triage Note: Pt c/o abdominal pain, GB removed last Saturday. Sepsis Screen: No Definite Risk Source of Information: Patient, Old Records Exam Limitations: No Limitations History of Present Illness Time Seen By Provider: 21:11 Initial Comments This 36-year-old woman presents to the emergency room with complaints of epigastric pain that started this morning. Pain is severe and she is in distress. She tried taking Tums which was not helpful. She had a laparoscopic cholecystectomy performed for a calculus cholecystitis performed by Dr. Armando on February 11. She has associated nausea. No fever. She is writhing in pain making initial exam challenging. Allergies and Home Medications Allergies Uncoded Allergies: ADHESIVE TAPE (Allergy, Unknown, 03/06/06) Home Medications Oxycodone HCl/Acetaminophen 1 Each Tablet, 1-2 EACH PO Q4H, #35 Prescribed by: BRANDIE ARMANDO on 02/11/17 1307 Sumatriptan Succinate 50 Mg Tablet, 50 MG PO DAILY PRN PRN for MIGRAINE, ( Reported) Review of Systems Constitutional: no symptoms reported EENTM: No Symptoms Reported Respiratory: No Symptoms Reported Cardiovascular: No Symptoms Reported Gastrointestinal: See HPI Genitourinary: No Symptoms Reported Musculoskeletal: no symptoms reported Skin: no symptoms reported Psychiatric/Neurological: No Symptoms Reported Endocrine: No Symptoms Reported Past Ruzksec-Rmwufz-Fxgoyk Hx Patient Social History Alcohol Use: Denies Use Recreational Drug Use: No Smoking Status: Never a Smoker 2nd Hand Smoke Exposure: No Recent Foreign Travel: No Contact w/Someone Who Travel: No Recent Infectious Disease Expo: No Recent Hopitalizations: No Immunizations Up To Date Tetanus Booster (TDap): Unknown PED Vaccines UTD: No Seasonal Allergies Seasonal Allergies: No Surgeries HX Surgeries: Yes (D AND C, EGD) Surgeries: Gallbladder, Tubal Ligation Respiratory Hx Respiratory Disorders: No Cardiovascular Hx Cardiac Disorders: No Neurological Hx Neurological Disorders: Yes Neurological Disorders: Headaches /Migraines 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 System Hx 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 Disorders: No Sexually Transmitted Disease: No HIV/AIDS: No Female 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 EMERGENCY MEDCL EMT History: Tubal Ligation Genitourinary Hx Genitourinary Disorders: No Gastrointestinal Hx Gastrointestinal Disorders: No Musculoskeletal Hx Musculoskeletal Disorders: No Endocrine Hx Endocrine Disorders: No HEENT HX ENT Disorders: No Cancer Hx Cancer: No Psychosocial Hx Psychiatric Problems: No Integumentary HX Skin/Integumentary Disorder: No Blood Transfusions Hx Blood Disorders: No Adverse Reaction to a Blood Tr: No Family Medical History Family Medial History: Diabetes mellitus 19 MOTHER Hypertension 19 MOTHER Physical Exam Vital Signs VS - Last 72 Hours, by Label 02/23/17 02/23/17 21:16 22:20 Temp 97.2 97.2 Pulse 89 Resp 18 B/P (MAP) 151/97 Pulse Ox 98 Capillary Refill : Less Than 3 Seconds General Appearance: WD/WN, moderate distress HEENT: PERRL/EOMI, normal ENT inspection Respiratory: lungs clear, normal breath sounds, no respiratory distress, no accessory muscle use Cardiovascular: regular rate, rhythm, no edema, no murmur Gastrointestinal: normal bowel sounds, soft, tenderness (epigastrium) Extremities: normal inspection, no pedal edema Neurologic/Psychiatric: inseam trimmer II-XII nml as tested, no motor/sensory deficits, alert, normal mood/affect, oriented x 3 Skin: normal color, warm/dry Progress/Results/Core Measures Results/Orders Lab Results Laboratory Tests Test 02/23/17 22:24 02/23/17 23:31 Range/Units White Blood Count 12.2 H 4.3-11.0 10^3/uL Red Blood Count 4.75 4.35-5.85 10^6/uL Hemoglobin 12.7 11.5-16.0 G/DL Hematocrit 39 35-52 % Mean Corpuscular Volume 81 80-99 FL Mean Corpuscular Hemoglobin 27 25-34 PG Mean Corpuscular Hemoglobin Concent 33 32-36 G/DL Red Cell Distribution Width 13.4 10.0-14.5 % Platelet Count 347 130-400 10^3/uL Mean Platelet Volume 10.9 H 7.4-10.4 FL Neutrophils (%) (Auto) 66 42-75 % Lymphocytes (%) (Auto) 26 12-44 % Monocytes (%) (Auto) 7 0-12 % Eosinophils (%) (Auto) 1 0-10 % Basophils (%) (Auto) 0 0-10 % Neutrophils # (Auto) 8.1 H 1.8-7.8 X 10^3 Lymphocytes # (Auto) 3.1 1.0-4.0 X 10^3 Monocytes # (Auto) 0.8 0.0-1.0 X 10^3 Eosinophils # (Auto) 0.2 0.0-0.3 10^3/uL Basophils # (Auto) 0.0 0.0-0.1 10^3/uL Sodium Level 140 135-145 MMOL/L Potassium Level 3.8 3.6-5.0 MMOL/L Chloride Level 105 98-107 MMOL/L Carbon Dioxide Level 23 21-32 MMOL/L Anion Gap 12 5-14 MMOL/L Blood Urea Nitrogen 12 7-18 MG/DL Creatinine 0.76 0.60-1.30 MG/DL Estimat Glomerular Filtration Rate > 60 BUN/Creatinine Ratio 16 Glucose Level 106 H 70-105 MG/DL Calcium Level 9.9 8.5-10.1 MG/DL Total Bilirubin 0.4 0.1-1.0 MG/DL Aspartate Amino Transf (AST/SGOT) 21 5-34 U/L Alanine Aminotransferase (ALT/SGPT) 28 0-55 U/L Alkaline Phosphatase 95 40-136 U/L C-Reactive Protein High Sensitivity 1.37 H 0.00-0.50 MG/DL Total Protein 7.0 6.4-8.2 G/DL Albumin 3.9 3.2-4.5 G/DL Lipase 84 H 8-78 U/L Urine Color YELLOW Urine Clarity CLEAR Urine pH 6.5 5-9 Urine Specific [place] 1.010 L 1.016-1.022 Urine Protein 1+ H NEGATIVE Urine Glucose (UA) NEGATIVE NEGATIVE Urine Ketones NEGATIVE NEGATIVE Urine Nitrite NEGATIVE NEGATIVE Urine Bilirubin NEGATIVE NEGATIVE Urine Urobilinogen NORMAL NORMAL MG/DL Urine Leukocyte Esterase 1+ H NEGATIVE Urine RBC (Auto) NEGATIVE NEGATIVE Urine RBC NONE /HPF Urine WBC RARE /HPF Urine Squamous Epithelial Cells 5-10 /HPF Urine Crystals NONE /LPF Urine Bacteria TRACE /HPF Urine Casts NONE /LPF Urine Mucus NEGATIVE /LPF Urine Culture Indicated NO My Orders Orders - SUMI HILL MD Cbc With Automated Diff (02/23/17 21:12) Comprehensive Metabolic Panel (02/23/17 21:12) Lipase (02/23/17 21:12) Ua Culture If Indicated (02/23/17 21:12) Saline Lock/Iv-Start (02/23/17 21:12) Fentanyl Injection (Sublimaze Injection (02/23/17 21:15) Hs C Reactive Protein (02/23/17 21:17) Ondansetron Injection (Zofran Injectio (02/23/17 21:30) Ondansetron Injection (Zofran Injectio (02/23/17 21:16) Ondansetron Oral Dissolve Tab (Zofran (02/23/17 21:45) Lidocaine 2% Viscous 15 Ml (Xylocaine Vi (02/23/17 21:45) Antacid Suspension (Mylanta Suspension (02/23/17 21:45) Lidocaine 2% Viscous 15 Ml (Xylocaine Vi (02/23/17 21:39) Ondansetron Oral Dissolve Tab (Zofran (02/23/17 21:39) Antacid Suspension (Mylanta Suspension (02/23/17 21:40) Fentanyl Injection (Sublimaze Injection (02/23/17 22:00) Promethazine Injection (Phenergan Injec (02/23/17 22:00) Hydromorphone Injection (Dilaudid Inject (02/23/17 22:15) Ct Abdomen/Pelvis W (02/23/17 22:26) Iohexol Injection (Omnipaque 350 Mg/Ml 1 (02/23/17 23:00) Ns (Ivpb) (Sodium Chloride 0.9% Ivpb Bag (02/23/17 23:00) Ns Iv 1000 Ml (Sodium Chloride 0.9%) (02/23/17 23:04) Us Hepatic (Liver)[id number] (02/23/17 23:30) Hydromorphone Injection (Dilaudid Inject (02/23/17 23:42) Medications Given in ED Current Medications Medications Dose Ordered Sig/Jamal Route Start Time Stop Time Status Last Admin Dose Admin Al Hydrox/Mg Hydrox/Simethicone 30 ml ONCE ONCE PO 02/23/17 21:45 02/23/17 21:46 DC 02/23/17 21:45 30 ML Fentanyl Citrate 100 mcg ONCE ONCE IM 02/23/17 22:00 02/23/17 22:01 DC 02/23/17 21:58 100 MCG Fentanyl Citrate 100 mcg ONCE ONCE IVP 02/23/17 21:15 02/23/17 21:16 DC 02/23/17 23:25 100 MCG Iohexol 100 ml ONCE ONCE IV 02/23/17 23:00 02/23/17 23:01 DC 02/23/17 22:49 100 ML Lidocaine HCl 15 ml ONCE ONCE PO 02/23/17 21:45 02/23/17 21:46 DC 02/23/17 21:45 15 ML Ondansetron HCl 8 mg ONCE ONCE IVP 02/23/17 21:30 02/23/17 21:31 DC 02/24/17 01:33 8 MG Ondansetron HCl 8 mg ONCE ONCE SL 02/23/17 21:45 02/23/17 21:46 DC 02/23/17 21:45 8 MG Promethazine HCl 25 mg ONCE ONCE IM 02/23/17 22:00 02/23/17 22:01 DC 02/23/17 21:54 25 MG Sodium Chloride 100 ml ONCE ONCE IV 02/23/17 23:00 02/23/17 23:01 DC 02/23/17 22:49 80 ML Sodium Chloride 1,000 ml @ 0 mls/hr Q0M ONCE IV 02/23/17 23:04 02/23/17 23:05 DC 02/23/17 23:10 0 MLS/HR Vital Signs/I&O Vital Sign - Last 12Hours 02/23/17 02/23/17 21:16 22:20 Temp 97.2 97.2 Pulse 89 Resp 18 B/P (MAP) 151/97 Pulse Ox 98 Blood Pressure Mean: 115 Progress Note #1: Time: 21:46 Progress Note Labs and IV were ordered along with pain medications. However, multiple IV attempts by multiple nurses were not successful. Patient will be given sublingual Zofran and a GI cocktail as the pain is directly over the epigastrium. If this does not improve her pain, further workup will be pursued. Progress Note #2: Time: 22:25 Progress Note Zofran and GI cocktail did not resolve pain or nausea. Attempts at IV access will again be pursued. In the meantime, Dilaudid 2 mg IM will be administered as fentanyl did not control her pain. Progress Note #3: Time: 23:[address] scan has been reviewed by me. Report is pending. Patient complains of rebounding pain. Fentanyl 100 g IV has been ordered. Progress Note #4: Progress Note Patient continued to have pain throughout her ER visit and required multiple doses of narcotic medications. She also had rebounding nausea. Patient was seen by Dr. Becerril and CT scan was viewed by Dr. Becerril. Admission for observation and intractable abdominal pain was felt appropriate. Diagnostic Imaging Diagonstic Imaging: CT Plain Films/CT/US/NM/MRI: abdomen, pelvis Comments CT abdomen and pelvis viewed by me. Discussed with Dr. Becerril who also viewed the images. [facility] report reviewed. There was fluid in the gallbladder fossa which may be postoperative, infectious, or bile leakage. Fatty liver noted. No appendicitis, small bowel obstruction, or diverticulitis. No hydronephrosis. Diagonstic Imaging: Ultrasound Plain Films/CT/US/NM/MRI: abdomen Comments Liver ultrasound discussed with the police service technician and [employer] report reviewed. Cholecystectomy noted. Common bile duct not clearly visualized due to bowel gas. No right hydronephrosis. Departure Impression Impression: Primary Impression: Epigastric pain Additional Impressions: Intractable abdominal pain Nausea and vomiting Qualified Codes: R11.2 - Nausea with vomiting, unspecified Disposition: ADMITTED INPATIENT Condition: Improved Decision to Admit Reason: Admit from ER (General) Decision to Admit/Date: February 23, 2017 Time/Decision to Admit Time: 23:45 Departure-Patient Inst. Referrals: YOVANY LA MD (PCP/Family) Primary Care Physician SUMI HILL MD February 23, 2017 21:42
[2017-02-23] MEDS ORDERED: LIDOCAINE 2% VISCOUS 15 ML UDC PO ONE (21:45)
[2017-02-23] MEDS ORDERED: ONDANSETRON 4 MG (ZOFRAN) ORAL DISSOLVE TAB SL ONE (21:45)
[2017-02-23] MEDS ORDERED: ANTACID SUSP 30 ML UDC (MYLANTA) PO ONE (21:45)
[2017-02-23] MEDS ORDERED: PROMETHAZINE INJ 25 MG/ML (PHENERGAN) AMP IM ONE (22:00)
[2017-02-23] MEDS ORDERED: fentaNYL INJECTION 100 MCG/2 ML AMP IM ONE (22:00)
[2017-02-23] MEDS ORDERED: HYDROmorphone (DILAUDID) 2 MG/ML VIAL IM STA (22:15)
[2017-02-23 22:37] LABS: BASOPHILS % (AUTO) 0 % (0-10); EOSINOPHILS # (AUTO) 0.2 10^3/uL (0.0-0.3); EOSINOPHILS % (AUTO) 1 % (0-10); LYMPHOCYTES # (AUTO) 3.1 X 10^3 (1.0-4.0); LYMPHOCYTES % (AUTO) 26 % (12-44); MEAN CORPUSCULAR HEMOGLOBIN 27 PG (25-34); MEAN CORPUSCULAR HGB CONC 33 G/DL (32-36); MEAN CORPUSCULAR VOLUME 81 FL (80-99); MEAN PLATELET VOLUME 10.9 FL (7.4-10.4); MONOCYTES # (AUTO) 0.8 X 10^3 (0.0-1.0); MONOCYTES % (AUTO) 7 % (0-12); NEUTROPHILS # (AUTO) 8.1 X 10^3 (1.8-7.8); NEUTROPHILS % (AUTO) 66 % (42-75); PLATELET COUNT 347 10^3/uL (130-400); RED BLOOD COUNT 4.75 10^6/uL (4.35-5.85); RED CELL DISTRIBUTION WIDTH 13.4 % (10.0-14.5); WHITE BLOOD COUNT 12.2 10^3/uL (4.3-11.0)
[2017-02-23 22:57] LABS: ALANINE AMINOTRANSFERASE 28 U/L (0-55); ALBUMIN 3.9 G/DL (3.2-4.5); ANION GAP 12 MMOL/L (5-14); ASPARTATE AMINO TRANSFERASE 21 U/L (5-34); BILIRUBIN,TOTAL 0.4 MG/DL (0.1-1.0); BLOOD UREA NITROGEN 12 MG/DL (7-18); BUN/CREATININE RATIO 16; CALCIUM 9.9 MG/DL (8.5-10.1); CARBON DIOXIDE 23 MMOL/L (21-32); CHLORIDE 105 MMOL/L (98-107); CREATININE SERUM 0.76 MG/DL (0.60-1.30); GFR ESTIMATED > 60; GLUCOSE 106 MG/DL (70-105); LIPASE 84 U/L (8-78); POTASSIUM 3.8 MMOL/L (3.6-5.0); SODIUM 140 MMOL/L (135-145); hs C REACTIVE PROTEIN 1.37 MG/DL (0.00-0.50)
[2017-02-23] MEDS ORDERED: NS 100 ML (IVPB) BAG IV ONE (23:00)
[2017-02-23] MEDS ORDERED: IOHEXOL 350 MG/ML 100 ML (OMNIPAQUE 350) VIAL IV ONE (23:00)
[2017-02-23] MEDS ORDERED: NS IV 1000 ML 1,000 ML IV ONE (23:04)
[2017-02-23 23:38] LABS: BILIRUBIN,URINE NEGATIVE (NEGATIVE); KETONES,URINE NEGATIVE (NEGATIVE); LEUKOCYTE ESTERASE ,URINE 1+ (NEGATIVE); NITRITE,URINE NEGATIVE (NEGATIVE); PH,URINE 6.5 (5-9); PROTEIN,URINE 1+ (NEGATIVE); UROBILINOGEN,URINE NORMAL (NORMAL)
[2017-02-23] MEDS ORDERED: HYDROmorphone (DILAUDID) 2 MG/ML VIAL IVP STA (23:42)
[2017-02-23 23:44] LABS: WBC,URINE RARE /HPF
[2017-02-24] MEDS ORDERED: HYDROmorphone (DILAUDID) 2 MG/ML VIAL IVP STA (01:28)
[2017-02-24 03:00] VITALS: BP 111/74
[2017-02-24] MEDS ORDERED: PANTOPRAZOLE 40 MG/10 ML (PROTONIX) VIAL ONE (03:13)
[2017-02-24] MEDS ORDERED: NS IV 1000 ML 1,000 ML ONE (03:13)
[2017-02-24] MEDS ORDERED: ONDANSETRON 4 MG/2 ML (SDV) Z0FRAN IV PRN (03:45)
[2017-02-24] MEDS: PANTOPRAZOLE 40 MG/10 ML (PROTONIX) VIAL IV SCH ×3 (03:49→21:13)
[2017-02-24] MEDS: NS IV 1000 ML 1,000 ML IV SCH ×3 (03:49→21:14)
[2017-02-24] MEDS: CATHETER FLUSH 10 ML SYR IV SCH ×3 (03:50→22:31)
[2017-02-24] MEDS: HYDROmorphone (DILAUDID) 2 MG/ML VIAL IV PRN ×2 (03:50→06:06)
[2017-02-24 04:42] LABS: BASOPHILS % (AUTO) 0 % (0-10); EOSINOPHILS # (AUTO) 0.1 10^3/uL (0.0-0.3); EOSINOPHILS % (AUTO) 1 % (0-10); LYMPHOCYTES # (AUTO) 2.4 X 10^3 (1.0-4.0); LYMPHOCYTES % (AUTO) 25 % (12-44); MEAN CORPUSCULAR HEMOGLOBIN 27 PG (25-34); MEAN CORPUSCULAR HGB CONC 33 G/DL (32-36); MEAN CORPUSCULAR VOLUME 83 FL (80-99); MEAN PLATELET VOLUME 10.7 FL (7.4-10.4); MONOCYTES # (AUTO) 0.8 X 10^3 (0.0-1.0); MONOCYTES % (AUTO) 8 % (0-12); NEUTROPHILS # (AUTO) 6.4 X 10^3 (1.8-7.8); NEUTROPHILS % (AUTO) 66 % (42-75); PLATELET COUNT 309 10^3/uL (130-400); RED BLOOD COUNT 4.47 10^6/uL (4.35-5.85); RED CELL DISTRIBUTION WIDTH 13.4 % (10.0-14.5); WHITE BLOOD COUNT 9.7 10^3/uL (4.3-11.0)
[2017-02-24 05:23] LABS: ALANINE AMINOTRANSFERASE 24 U/L (0-55); ALBUMIN 3.5 G/DL (3.2-4.5); AMYLASE 36 U/L (25-125); ANION GAP 9 MMOL/L (5-14); ASPARTATE AMINO TRANSFERASE 19 U/L (5-34); BILIRUBIN,TOTAL 0.4 MG/DL (0.1-1.0); BLOOD UREA NITROGEN 11 MG/DL (7-18); BUN/CREATININE RATIO 15; CALCIUM 9.2 MG/DL (8.5-10.1); CARBON DIOXIDE 24 MMOL/L (21-32); CHLORIDE 107 MMOL/L (98-107); CREATININE SERUM 0.73 MG/DL (0.60-1.30); GFR ESTIMATED > 60; GLUCOSE 101 MG/DL (70-105); LIPASE 44 U/L (8-78); POTASSIUM 3.8 MMOL/L (3.6-5.0); SODIUM 140 MMOL/L (135-145); TOTAL PROTEIN 6.3 G/DL (6.4-8.2)
[2017-02-24] MEDS ORDERED: SUMAtriptan 50 MG (IMITREX) TAB PO PRN (05:45)
[2017-02-24] MEDS: diphenhydrAMINE 50 MG/ML INJ (BENADRYL) IVP PRN ×4 (06:06→21:12)
[2017-02-24] MEDS: PROMETHAZINE INJ 25 MG/ML (PHENERGAN) AMP IVP PRN ×4 (06:06→21:13)
--- NOTE | 2017-02-24 07:30 | History & Physicial ---
History of Present Illness History of Present Illness Reason for visit/HPI EPIGASTRIC PAIN OF 24-HOUR DUR[address] CT scan negative for postoperative bile leak. laparoscopic cholecystectomy 12 days ago Date of Admission February 24, 2017 at 12:45 am I consulted on this patient on 02/24/17 07:27 Attending Physician Brandie Reyna MD Admitting Physician Maxim Vazquez MD Consult Allergies and Home Medications Allergies Uncoded Allergies: ADHESIVE TAPE (Allergy, Unknown, 03/06/06) Home Medications Oxycodone HCl/Acetaminophen 1 Each Tablet, 1-2 EACH PO Q4H, #35 Prescribed by: BRANDIE REYNA on 02/11/17 1307 Sumatriptan Succinate 50 Mg Tablet, 50 MG PO DAILY PRN PRN for MIGRAINE, ( Reported) Past Yqkcrbi-Jkbjqr-Cqswws Hx Patient Social History Employed/Student: employed Alcohol Use: Denies Use Recreational Drug Use: No Smoking Status: Never a Smoker 2nd Hand Smoke Exposure: No Physical Abuse Screen: No Sexual Abuse: No Recent Foreign Travel: No Contact w/other who traveled: No Recent Hopitalizations: Yes Recent Infectious Disease Expo: No Immunizations Up To Date Tetanus Booster (TDap): Unknown Seasonal Allergies Seasonal Allergies: No Surgeries HX Surgeries: Yes (D AND C, EGD) Surgeries: Gallbladder, Tubal Ligation Respiratory Hx Respiratory Disorders: No Cardiovascular Hx Cardiovascular Disorders: No Neurological Hx Neurological Disorders: Yes Neurological Disorders: Headaches /Migraines 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 System Hx 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 Disorders: No Sexually Transmitted Disease: No HIV/AIDS: No Female 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 Genitourinary Hx Genitourinary Disorders: No Gastrointestinal Hx Gastrointestinal Disorders: No Musculoskeletal Hx Musculoskeletal Disorders: No Endocrine Hx Endocrine Disorders: No HEENT HX ENT Disorders: No Cancer Hx Cancer: No Psychosocial Hx Psychiatric Problems: No Integumentary HX Skin/Integumentary Disorder: No Blood Transfusions Hx Blood Disorders: No Adverse Reaction to a Blood Tr: No Family Medical History Family Hx: Diabetes mellitus 19 MOTHER Hypertension 19 MOTHER Constitutional: malaise EENTM: no symptoms reported Respiratory: no symptoms reported Cardiovascular: no symptoms reported Gastrointestinal: abdominal pain (RUQ), nausea Genitourinary: no symptoms reported : No Musculoskeletal: back pain Skin: no symptoms reported Psychiatric/Neurological: No Symptoms Reported Physical Exam Vital Signs Vital Sign - Last 12Hours 02/23/17 21:16 Temp 97.2 Pulse 89 Resp 18 B/P (MAP) 151/97 Pulse Ox 98 Capillary Refill : Less Than 3 Seconds General Appearance: Severe Distress HEENT: TMs Normal Neck: Normal Inspection Respiratory: Lungs Clear Cardiovascular: Regular Rate, Rhythm Gastrointestinal: Soft, Tenderness Rectal: Deferred Extremity: Normal Inspection Neurologic/Psychiatric: Alert, Oriented x3 Skin: Warm/Dry Comments epigastric tenderness. Laparoscopic scars well healed Assessment/Plan Assessment and Plan lady with epigastric pain.. No bile leak. No pneumoperiton Gastritis versus peptic ulcer di Upper endoscopy would be reasonable and this would be performed this morning Problems: Admission Diagnosis epigastric abdominal pain Clinical Quality Measures DVT/VTE Risk/Contraindication: Risk Factor Score Per Nursin RFS Level Per Nursing on Admit: 2=Moderate EDIL DELGADO MD February 24, 2017 7:30 am
--- NOTE | 2017-02-24 07:30 | Conscious Sedation/ASA ---
Conscious Sedation Pre-Proced Time Reviewed: 07:30 ASA Class: 2 Airway Mallampati Classification: ([place] appropriate class) I. II. III, IV Lungs Heart ASA score ASA 1: a normal healthy patient ASA 2: a patient with a mild systemic disease (mid diabetes, controlled hypertension, obesity ASA 3: a patient with a severe systemic disease that limits activity (angina , COPD, prior Myocardial infarction) ASA 4: a patient with an incapacitating disease that is a constant threat to life (CHF, renal failure) ASA 5: a moribund patient not expected to survive 24 hrs. (ruptured aneurysm) ASA 6: a declared brain patient whose organs are being harvested. For emergent operations, add the letter E after the classification Grade 2 Sedation Plan: Discussed options with patient/fam Note The patient is an appropriate candidate to undergo the planned procedure, sedation, and anesthesia. The patient immediately re-assessed prior to indication. EDIL DELGADO MD February 24, 2017 7:30 am
--- NOTE | 2017-02-24 07:59 | Diagnostic Imaging Report ---
US HEPATIC (LIVER)[id number] TECHNIQUE: Grayscale and color Doppler imaging of the right upper quadrant was performed. INDICATION: Abdominal pain. History of cholecystectomy. COMPARISON: CT abdomen and pelvis performed 02/23/2017. FINDINGS: Liver demonstrates diffuse increased echogenicity indicative of hepatic steatosis. No discrete hepatic lesion, though evaluation is limited due to poor sound transmission from hepatic steatosis. Status post cholecystectomy. Fluid collection within the gallbladder fossa is poorly visualized due to hepatic steatosis. Common bile duct is obscured by overlying bowel gas. Pancreas is obscured by overlying bowel gas and better evaluated on recent CT. Right kidney is normal in size without hydronephrosis. IMPRESSION: 1. Diffuse hepatic steatosis. 2. The fluid collection in the gallbladder fossa seen on CT is not well visualized on this examination due to increased bowel gas and hepatic steatosis which limits sounds transmission through the liver. Please see CT abdomen and pelvis report from 02/23/2017 for more complete evaluation Dictated by: Dictated on workstation # [id number]
[2017-02-24 08:00] VITALS: BP 92/57
--- NOTE | 2017-02-24 08:13 | Diagnostic Imaging Report ---
PROCEDURE: CT abdomen and pelvis with contrast. TECHNIQUE: Multiple contiguous axial images were obtained through the abdomen and pelvis after administration of intravenous contrast. INDICATION: Cholecystectomy 02/11 now with pain. Exam compared to 02/11/2017. There is a clip at the gallbladder fossa. Adjacent to the clip is a regional edema and fluid without appreciable rim enhancement. When it is measured on the delayed images the hypodense region is roughly 3.7 x 1.6 cm. This may be some residual resorbing postoperative fluid however an infected collection cannot be entirely excluded in the appropriate scenario. Bilious collection would be an additional consideration in the appropriate scenario. There is however no bile duct dilatation and there is no abdominal pelvic free fluid. Spleen, adrenals and pancreas are within normal limits. The unobstructed kidneys appeared normal. The air-containing appendix normal. There is no diverticulitis. The uterus, adnexa and urinary bladder normal. IMPRESSION: Small amount of edema and fluid in the postoperative gallbladder fossa. Its sterility could not be confirmed by imaging. We do acknowledge this is not an uncommon finding at this stage post cholecystectomy. No convincing acute pathological finding at the study is revealed. Dictated by: Dictated on workstation # [id number]
[2017-02-24] MEDS ORDERED: fentaNYL INJECTION 100 MCG/2 ML AMP ONE (08:29)
[2017-02-24] MEDS ORDERED: MIDAZOLAM 2 MG/2 ML (VERSED) VIAL ONE ×4 (08:29)
[2017-02-24] MEDS ORDERED: NS IV 500 ML 500 ML ONE (08:29)
[2017-02-24] MEDS ORDERED: HURRICAINE EXT TUBE (BENZOCAINE) ONE (08:30)
[2017-02-24] MEDS ORDERED: NS IV 500 ML 500 ML IV PRN (08:50)
[2017-02-24] MEDS ORDERED: FAMOTIDINE 20MG/2ML IV (PEPCID) IV SCH (09:00)
--- NOTE | 2017-02-24 09:03 | Endoscopy Procedure Report ---
Endoscopy Report Date: February 24, 2017 Preoperative Diagnosis: epigastric pain Study Performed: Upper Endoscopy Procedure Instrument: Endoscope Endo Procedure/Findings Findings 1.: Hiatal Hernia, Gastritis, Other Findings Copy Copies To 1: BRANDIE REYNA MD Copies To 2: YOVANY LA MD, XAVIER M MD February 24, 2017 9:03 am
[2017-02-24] MEDS ORDERED: fentaNYL INJECTION 100 MCG/2 ML AMP IVP PRN (09:15)
[2017-02-24] MEDS ORDERED: HURRICAINE EXT TUBE (BENZOCAINE) XX PRN (09:15)
[2017-02-24] MEDS ORDERED: MIDAZOLAM 2 MG/2 ML (VERSED) VIAL IVP PRN (09:15)
[2017-02-24 09:35] VITALS: BP 110/64
[2017-02-24] MEDS: SUCRALFATE 1 GM (CARAFATE) TAB PO SCH ×2 (11:05→16:46)
[2017-02-24] MEDS: fentaNYL INJECTION 100 MCG/2 ML AMP IVP PRN ×2 (11:55→14:43)
[2017-02-24 12:00] VITALS: BP 113/69
[2017-02-24 16:06] VITALS: BP 117/77
[2017-02-24 19:23] VITALS: BP 121/57
[2017-02-24] MEDS: CATHETER FLUSH 10 ML SYR IV PRN (21:13)
--- NOTE | 2017-02-24 22:57 | OPERATIVE REPORT ---
DATE OF SERVICE: 02/24/2017 PROCEDURE: Upper GI endoscopy with antral biopsy. SURGEON: Edil Delgado MD INDICATION FOR PROCEDURE: This lady came in with acute epigastric pain of 24 hours' duration. Duodenal perforation was ruled out. In addition, with regard to a recent laparoscopic cholecystectomy, bile leak was ruled out as well. Since her pain continued, it was felt reasonable to perform an upper endoscopy. Informed consent was obtained after reviewing the procedures in detail. DESCRIPTION OF PROCEDURE: She was placed in left lateral decubitus position and her vital signs were monitored. Conscious sedation was achieved using Versed and fentanyl. The flexible gastroscope was then introduced down the esophagus, passed to the stomach, into the proximal duodenum. FINDINGS: ESOPHAGUS: Hiatal hernia with grade II esophagitis. STOMACH: 1. Diffuse gastritis. 2. A shallow erosion at the pyloric channel. Antral biopsy was obtained for Helicobacter status. DUODENUM: Changes of duodenitis involving the 1st part. She tolerated the procedure well and was taken back to the nursing area in stable condition. IMPRESSION: Acute epigastric pain. Diffuse gastritis. Esophagitis. Will treat conservatively. Job ID: [id number] DocumentID: [id number] Dictated Date: 02/24/2017 09:02:54 Dermatopathologist Date: 02/24/2017 11:55:20 Dictated By: EDIL DELGADO MD [facility]
[2017-02-25 00:17] VITALS: BP 107/63
[2017-02-25 04:21] VITALS: BP 114/75
[2017-02-25] MEDS: PROMETHAZINE INJ 25 MG/ML (PHENERGAN) AMP IVP PRN (06:04)
[2017-02-25] MEDS: CATHETER FLUSH 10 ML SYR IV SCH (06:05)
[2017-02-25] MEDS: NS IV 1000 ML 1,000 ML IV SCH (06:05)
[2017-02-25] MEDS: CATHETER FLUSH 10 ML SYR IV PRN (06:05)
[2017-02-25] MEDS: SUCRALFATE 1 GM (CARAFATE) TAB PO SCH (06:07)
[2017-02-25 08:00] VITALS: BP 101/59
[2017-02-25] MEDS: PANTOPRAZOLE 40 MG/10 ML (PROTONIX) VIAL IV SCH (08:50)
--- NOTE | 2017-02-25 09:14 | Progress Note-Standard ---
Standard Progress Note Progress Notes/Assess & Plan Progress/Assessment & Plan 02/25/17:abdominal pain improved. No tenderness on examination. Vital signs stable. Tolerating diet. Could be discharged Final Diagnosis acute gastritis EDIL DELGADO MD February 25, 2017 9:14 am
--- NOTE | 2017-02-25 09:16 | Discharge Inst-Simple/Standard ---
Discharge Inst-Standard Discharge Medications New, Converted or Re-Newed RX: Other Patient Instructions/Follow Up Plan of Care/Instructions/FU: please call for Carafate 1 g 3 times a day for 10 days to her pharmacy. No refill. Follow-up with Dr. Armando in one week Activity as Tolerated: Yes Discharge Diet: No Restrictions EDIL DELGADO MD February 25, 2017 9:16 am
[2017-02-25 11:05] VITALS: BP 101/59
== END 2017-02-25 11:20 | disposition home or self-care (01) ==
LOC: EDUNIT# 21:10 → ER 21:11 → 4TH 02-24 00:45 → UNDOADMOB 02-24 00:45 → 4TH 02-24 02:20 → SDC 02-24 02:20 → UNDODISOB 02-25 11:20
PROVIDERS: ATTEND Surgery
DX: K20.9 Esophagitis, unspecified (principal); K44.9 Diaphragmatic hernia without obstruction or gangrene; K29.70 Gastritis, unspecified, without bleeding; K25.9 Gastric ulcer, unspecified as acute or chronic, without hemorrhage or perforation; K29.80 Duodenitis without bleeding
CPT/HCPCS: 36415; 74177; 76705; 80053; 81000; 82150; 83690; 85025; 86141; 88305; 96361; 96372; 96374; 96375; 96376

== ENCOUNTER 2017-09-11 14:09 | Emergency (ER) | payer MEDICAID ==
[~2017-09-11] VITALS: Ht 165.1 cm; Wt 102.1 kg
--- OUTSIDE RECORDS SUMMARY | 2017-09-11 14:14 | XMS REPORT | Encounter Summary ---
Author Author [facility] Organization [facility] Address Unknown Phone Unavailable Care Team Providers Care Ballet Teacher Name Role Phone PCP Unavailable Reason for Referral * Pain Authorization Status Reason Specialty Diagnoses / Referred By Referred To Procedures Contact Contact No Auth Needed Neurology Diagnoses Lisa Naranjo MD [facility] Chronic migraine [address]ced[address] [place], [place] [address] Phone: Fax: Reason for Visit * Reason Comments Migraine Procedure BOTOX * Pain Authorization Status Reason Specialty Diagnoses / Referred By Referred To Procedures Contact Contact No Auth Needed Neurology Diagnoses Lisa Naranjo MD [facility] Chronic migraine [address] without aura [address] without status [place], [place], [place] migrainosus, not [place] [address] intractable Phone: Phone: P [phone] rocedures Fax: [place] [phone] [place] BOTULINUM TOXIN A PER UNIT Encounter Details Date Type Department Care Team Description 07/02/2017 Procedure visit [facility] Lisa Naranjo MD Chronic migraine (Primary Hospital Neurology [address] Dx) [address] [place] [address] [phone] Social History Tobacco Use Types Packs/Day Years Used Date Never Smoker Smokeless Tobacco: Never Used Alcohol Use Drinks/Week oz/Week Comments No 0 Standard 0.0 drinks or equivalent Sex Assigned at Date Recorded Not on file as of this encounter Last Filed Vital Signs Vital Sign Reading Time Taken Blood Pressure 99/79 07/02/2017 10:35 AM CDT Pulse 65 07/02/2017 10:35 AM CDT Temperature - - Respiratory Rate - - Oxygen Saturation 98% 07/02/2017 10:35 AM CDT Inhaled Oxygen - - Concentration Weight 107 kg (236 lb) 07/02/2017 10:35 AM CDT Height 165.1 cm (5' 5") 07/02/2017 10:35 AM CDT Body Mass Index 39.27 07/02/2017 10:35 AM CDT in this encounter Instructions * Patient Instructions - Lisa Naranjo MD - 07/02/2017 7:07 AM CDT Please call [facility] @ [phone] for any questions or concerns related to Botox. It is patient's responsibility to notify the Patient Registration Department @ [phone] or [phone] of any insurance changes, at least 30 days prior to any Botox injection appointment, to allow for prior authorization update. Do not massage or apply pressure on the treated area for 4hrs after treatment since Botox may migrate from areas of effectiveness. Do not lie down for 4 hours after treatment. This is to avoid the risk of pressure on the treated areas. Avoid rigorous exercise/activities, extensive heat (eg. sauna, hot tub, tanning) and sun exposure, and alcoholic beverages for the first 24 hours after treatment. This may cause temporary redness, swelling, and/or itching at the injection sites. Feel free to shower and go about most other daily activities. You may experience a mild headache after Botox. Should this occur, we recommend you avoid aspirin or aspirin containing products. You may opt instead to use acetaminophen, and/or cool compresses. Cold compresses may be used 10 minutes on 10 minutes off to reduce swelling 2-3 times per day during the first 1-2 days if needed. Note that any bumps or acosta will go away in a few hours. If you do develop a bruise it will resolve like any other bruises you may have had in about a week. There is occasionally some mild pain, swelling, itching, or redness at the site of injection similar to most other injections. Redness may last for 1- 2 days, rarely longer. You may apply cool compresses or take acetaminophen to reduce swelling or discomfort. Please call the office with any questions or concerns. in this encounter Progress Notes * Lisa Naranjo MD - 07/02/2017 7:07 AM CDT Formatting of this note may be different from the original. Subjective: Juana Vazquez is a 36 y.o. female here today for Botox for chronic migraines. This is Botox injection #2. Previous headaches: Left-sided mostly behind the eye, sharp, stabbing pain that could be pounding up to 10/10, 25 days per month. She says that she had about 18-19 headaches per month down from 25, but intensity was still 10/10 on those days. She says that she does feel it has cut down on emergency room visits. Do you understand the risks of botox as discussed in the consent and wish to proceed? Patient states YES. Are you currently or trying to become , as botox is not indicated while ? Patient states NO. Vitals: 07/02/17 1035 BP: 99/79 Pulse: 65 SpO2: 98% Weight: 107 kg (236 lb) Height: 165.1 cm (65") Botox Injection Procedure Previous Injection Date: 04/09/17 Information given verbally to the patient today included, but was not limited to: Most common side effects: neck pain, headache, eyelid ptosis, migraine, muscular weakness, musculoskeletal stiffness, bronchitis, injection-site pain, musculoskeletal pain, myalgia, facial paresis, hypertension, muscle spasms; infection at injections sites, bruising, bleeding Most serious side effects/risks: anaphylaxis, dysphagia, arrhythmia, myocardial infarction, and in some cases, spontaneous Consent form was signed. Confirmed: patient, procedure, side, site, safety procedures followed. Performed by: Lisa Naranjo MD Preparation: no contraindications noted to Botox, possible medications prior to procedure: topical numbing cream prior to procedure, Preparation of site with alcohol Procedure performed: Indication: Chronic Migraine Headaches Medication: Onabotulinum toxin A 2.0ml normal saline as diluent /100 units ( Botulinum Toxin 5 units per 0.1mL, 200 units prepared, 155 units used, 45 units of waste) Location: PREEMPT protocol (Анна STACY, and coauthors. Cephalalgia, 2010;30:793) Muscles/Sites Injected A - Bilateral Lacing Operator - 10 units divided in 2 sites B - Midline Procerus - 5 units in 1 site C - Bilateral Frontalis - 20 units divided in 4 sites D - Bilateral Temporalis - 40 units divided in 8 sites E - Bilateral Occipitalis - 30 units divided in 6 sites F - Bilateral Cervical Paraspinals - 20 units divided in 4 sites G - Bilateral Trapezius - 30 units divided in 6 sites Total Dose - 155 Units divided in 31 sites Lot/Expiration: [id number], 01/2020 - BOTH VIALS Procedure tolerated: well. Complications: none. Diagnosis - Chronic Migraine Headaches Course: Progressing as expected. Counseled: Patient/Family, Regarding diagnosis, Regarding treatment, Regarding medications. If any serious side effects occur, the patient has been instructed to go to the nearest emergency room and call our office. Follow up: as scheduled prior to next Botox administration. in this encounter Miscellaneous Notes * Addendum Note - Bessie Haynes RN - 07/02/2017 11:13 AM CDT Addended by: BESSIE HAYNES on: 07/02/2017 11:13 AM Modules accepted: Orders in this encounter Plan of Treatment Name Priority Associated Diagnoses Order Schedule CHEMOD[facility]ERVATION Routine Chronic migraine Ordered: 07/02/2017 as of this encounter Visit Diagnoses Diagnosis Chronic migraine - Primary Chronic migraine without aura, without mention of intractable migraine without mention of status migrainosus in this encounter Administered Medications Medication Order MAR Action Action Date Dose Rate Site botulinum toxin (BOTOX) syringe 200 Given 07/02/2017 200 Units Units 10:55 CDT 200 Units, SEE ADMIN INSTRUCTIONS, ONCE, 1 dose, 07/02/17 at 1100, 155 units given, 45 units wasted in this encounter
--- OUTSIDE RECORDS SUMMARY | 2017-09-11 14:14 | XMS REPORT | Encounter Summary ---
Author Author [facility] Organization [facility] Address Unknown Phone Unavailable Care Team Providers Care Control Chemist Name Role Phone PCP Unavailable Reason for Referral * Pain Authorization Status Reason Specialty Diagnoses / Referred By Referred To Procedures Contact Contact No Auth Needed Neurology Diagnoses Lisa Naranjo MD [facility] Chronic migraine [address] without aura [address] without status [place], [place] mig[place]osus, [place] [address] intractable Phone: Phone: P [phone] rocedures Fax: [place] [phone] [place] BOTULINUM TOXIN A PER UNIT Encounter Details Date Type Department Care Team Description 06/12/2017 Orders Only [facility] Lisa Naranjo MD Chronic migraine without Hospital Neurology [address] aura without status [address] migrainosus, not [address] [place] [address] intractable (Primary Dx) [place] [address] [phone] Social History Tobacco Use Types Packs/Day Years Used Date Never Smoker Smokeless Tobacco: Never Used Alcohol Use Drinks/Week oz/Week Comments No 0 Standard 0.0 drinks or equivalent Sex Assigned at Date Recorded Not on file as of this encounter Plan of Treatment Name Priority Associated Diagnoses Order Schedule [facility]MODENERVATION Routine Chronic migraine without Ordered: 06/12/2017 aura without status migrainosus, not intractable as of this encounter Visit Diagnoses Diagnosis Chronic migraine without aura without status migrainosus, not intractable - Primary Chronic migraine without aura, without mention of intractable migraine without mention of status migrainosus in this encounter
--- OUTSIDE RECORDS SUMMARY | 2017-09-11 14:14 | XMS REPORT | Continuity of Care Document ---
Author Author [facility] Organization [facility] Address Unknown Phone Unavailable Care Team Providers Care Bundle Tier And Labeler Name Role Phone [employer] Unavailable Unavailable Problems Medications Allergies, Adverse Reactions, Alerts Immunizations Results Vital Signs Encounters Procedures Plan of Care Social History Assessment and Plan Family History Value Date Source Advance Directives Order Name Results Value Date Source
--- OUTSIDE RECORDS SUMMARY | 2017-09-11 14:14 | XMS REPORT | Clinical Summary ---
Author Author [facility] Organization [facility] Address Unknown Phone Unavailable Care Team Providers Care Miller Head Name Role Phone PCP Unavailable Source Comments Some departments are not documenting in the electronic medical record. If you do not see the information that you expected, contact Release of Information in the Health Information Management department at [phone] for further assistance in locating additional records.[facility] Allergies No Known Allergies Current Medications Prescription Sig. Disp. Refills Start End Date Status Date SUMAtriptan succinate Take 50-100 mg by mouth Active (IMITREX) 50 mg tablet as Needed for Migraine symptoms. IBUPROFEN PO Take by mouth as Needed. Active ACETAMINOPHEN PO Take by mouth as Needed. Active acetaZOLAMIDE (DIAMOX) Take 1 Tab by mouth twice 60 Tab 3 03/18/20 Active 250 mg tablet daily. 17 Active Problems Problem Noted Date Chronic migraine 04/09/2017 Encounters Date Type Specialty Care Team Description 07/02/2017 Procedure visit Neurology Lisa Naranjo MD Chronic migraine (Primary Dx) 06/12/2017 Orders Only Neurology Lisa Naranjo MD Chronic migraine without aura without status migrainosus, not intractable (Primary Dx) from Last 3 Months Family History Medical History Relation Name Comments Cancer Maternal Aunt Migraines Maternal Aunt Cancer Maternal Grandmother Diabetes Mother insulin dependent Relation Name Status Comments Maternal Aunt Maternal Grandmother Mother Social History Tobacco Use Types Packs/Day Years Used Date Never Smoker Smokeless Tobacco: Never Used Alcohol Use Drinks/Week oz/Week Comments No 0 Standard 0.0 drinks or equivalent Sex Assigned at Date Recorded Not on file Last Filed Vital Signs Vital Sign Reading [...] Mass Index 39.27 07/02/2017 10:35 AM CDT Plan of Treatment Health Maintenance Due Date Last Done Comments PHYSICAL (COMPREHENSIVE) 1988 EXAM PERTUSSIS VACCINE 1992 TETANUS VACCINE 1998 CERVICAL CANCER SCREENING 12/21/2011 INFLUENZA VACCINE 04/30/2017 Results Not on filefrom Last 3 Months
[2017-09-11] MEDS ORDERED: NS IV 1000 ML 1,000 ML IV ONE (16:44)
[2017-09-11] MEDS ORDERED: fentaNYL INJECTION 100 MCG/2 ML AMP IVP ONE ×2 (16:45→18:15)
[2017-09-11] MEDS ORDERED: PROMETHAZINE INJ 25 MG/ML (PHENERGAN) AMP IVP ONE (16:45)
[2017-09-11] MEDS ORDERED: diphenhydrAMINE 50 MG/ML INJ (BENADRYL) IVP ONE (16:45)
[2017-09-11] MEDS ORDERED: methylPREDNISolone 125 MG (Solu-MEDROL) VIAL IVP ONE (16:45)
[2017-09-11] MEDS ORDERED: PROM25TA14 PO (18:06)
--- NOTE | 2017-09-11 18:06 | ED Headache ---
General Chief Complaint: Head/Cervical Problems Stated Complaint: MIGRAINE Nursing Triage Note: Pt c/o migraine starting at 0500 this morning. pt reports taking 200mg imitrex, 1000mg tylenol and 800mg ibuprofen w/ no relief. Pt also reports n/v. Nursing Sepsis Screen: No Definite Risk Source: patient, old records Exam Limitations: no limitations History of Present Illness Time seen by provider: 16:35 Initial Comments This 36-year-old young lady presents to emergency room with complaints of migraine headaches since you're 5:30. She has a long history of chronic migraine problems. She took Imitrex 2 today plus Tylenol and ibuprofen. Migraine persists and she has associated nausea and vomiting. She reports a decrease in headache since receiving Botox injections by a neurologist. Chart was reviewed. Prior treatment regimens were noted. Patient states she cannot take Toradol or Zofran for her migraines because they historically have made the symptoms worse. Allergies and Home Medications Allergies Uncoded Allergies: ADHESIVE TAPE (Allergy, Unknown, 03/06/06) Home Medications Oxycodone HCl/Acetaminophen 1 Each Tablet, 1-2 EACH PO Q4H, #35 Prescribed by: BRANDIE REYNA on 02/11/17 1307 Promethazine HCl 25 Mg Tablet, 25 MG PO Q6H PRN for NAUSEA/VOMITING, #10 Prescribed by: SUMI JUAREZ on 09/11/17 1806 Sumatriptan Succinate 50 Mg Tablet, 50 MG PO DAILY PRN PRN for MIGRAINE, ( Reported) Constitutional: no symptoms reported Eyes: No Symptoms Reported Ears, Nose, Mouth, Throat: no symptoms reported Respiratory: no symptoms reported Cardiovascular: no symptoms reported Gastrointestinal: see HPI Genitourinary: no symptoms reported : No Musculoskeletal: no symptoms reported Skin: no symptoms reported Psychiatric/Neurological: See HPI Past Teorwvo-Uhwimp-Cnrbkx Hx Patient Social History Alcohol Use: Denies Use Recreational Drug Use: No Smoking Status: Never a Smoker 2nd Hand Smoke Exposure: No Recent Foreign Travel: No Contact w/Someone Who Travel: No Recent Infectious Disease Expo: No Recent Hopitalizations: No Immunizations Up To Date Tetanus Booster (TDap): Unknown PED Vaccines UTD: No Seasonal Allergies Seasonal Allergies: No Surgeries History of Surgeries: Yes (CYST REMOVAL) Surgeries: Gallbladder, Tubal Ligation Respiratory History of Respiratory Disorde: No Cardiovascular History of Cardiac Disorders: No Neurological History of Neurological Disord: Yes Neurological Disorders: Headaches /Migraines 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 System Hx 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 Disorders: No Sexually Transmitted Disease: No HIV/AIDS: No Female 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 Genitourinary History of Genitourinary Disor: No Gastrointestinal History of Gastrointestinal Di: No Musculoskeletal History of Musculoskeletal Dis: No Endocrine History of Endocrine Disorders: No HEENT History of HEENT Disorders: No Cancer History of Cancer: No Psychosocial History of Psychiatric Problem: No Integumentary History of Skin or Integumenta: No Blood Transfusions History of Blood Disorders: No Adverse Reaction to a Blood Tr: No Family Medical History Family Medial History: Diabetes mellitus 19 MOTHER Hypertension 19 MOTHER Physical Exam Vital Signs Vital Sign - Last 12Hours 09/11/17 14:49 Temp 98.1 Pulse 59 Resp 18 B/P (MAP) 141/75 (97) Pulse Ox 99 O2 Delivery Room Air Capillary Refill : Less Than 3 Seconds General Appearance: WD/WN, moderate distress HEENT: normal ENT inspection Neck: normal inspection Cardiovascular: regular rate, rhythm, no edema, no murmur Respiratory: lungs clear, normal breath sounds, no respiratory distress, no accessory muscle use Extremities: normal inspection Crainal Nerves: normal hearing, normal speech, PERRL Motor/Sensory: no motor deficit Skin: normal color, warm/dry Progress/Results/Core Measures Results/Orders My Orders Orders - SUMI HILL MD Saline Lock/Iv-Start (09/11/17 16:44) Ns Iv 1000 Ml (Sodium Chloride 0.9%) (09/11/17 16:44) Fentanyl Injection (Sublimaze Injection (09/11/17 16:45) Promethazine Injection (Phenergan Injec (09/11/17 16:45) Diphenhydramine Injection (Benadryl Inje (09/11/17 16:45) Methylprednisolone Sod Succ (Solu-Medrol (09/11/17 16:45) Metoclopramide Injection (Reglan Injecti (09/11/17 18:15) Fentanyl Injection (Sublimaze Injection (09/11/17 18:15) Medications Given in ED Vital Signs/I&O Vital Sign - Last 12Hours 09/11/17 09/11/17 14:49 18:34 Temp 98.1 98.0 Pulse 59 101 Resp 18 20 B/P (MAP) 141/75 (97) Pulse Ox 99 98 O2 Delivery Room Air Room Air Intake and Output 09/11/17 23:59 Intake Total 1000 ml Balance 1000 ml Blood Pressure Mean: 97 Progress Note : Progress Note As with prior treatments, patient received IV fluids, Phenergan, Benadryl, fentanyl, and Solu-Medrol. She had some residual nausea and headache. Reglan and additional fentanyl were administered prior to dismissal. Departure Impression Impression: Primary Impression: Migraine headache Qualified Codes: G43.909 - Migraine, unspecified, not intractable, without status migrainosus Additional Impression: Nausea and vomiting Qualified Codes: R11.2 - Nausea with vomiting, unspecified Disposition: 01 HOME, SELF-CARE Condition: Improved Departure-Patient Inst. Decision time for Depature: 18:04 Referrals: NO,LOCAL PHYSICIAN (PCP/Family) Primary Care Physician Patient Instructions: Migraine Headache (DC) Add. Discharge Instructions: Drink plenty of clear liquids. Gradually advance your diet with small quantities of bland food as tolerated. Use Phenergan (promethazine) as prescribed for further nausea and vomiting. You may use ibuprofen and Tylenol for headache and add Imitrex as previously prescribed. Follow-up with your primary care provider and or neurologist as soon as possible for further recommendations. Return to the ER if symptoms worsen. Return home and rest in a quiet, calm, dark place for the remainder of the evening. All discharge instructions reviewed with patient and/or family. Voiced understanding. Scripts Promethazine HCl (Promethazine Tablet) 25 Mg Tablet 25 MG PO Q6H Y for NAUSEA/VOMITING, #10 TAB Prov: SUMI HILL MD 09/11/17 SUMI HILL MD Sep 11, 2017 18:06
[2017-09-11] MEDS ORDERED: METOCLOPRAMIDE INJ 10 MG/2 ML (REGLAN) IVP ONE (18:15)
[2017-09-11 18:34] VITALS: BP 140/87
== END 2017-09-11 18:31 | disposition home or self-care (01) ==
LOC: EDUNIT# 14:09 → ER 14:11
DX: G43.909 Migraine, unspecified, not intractable, without status migrainosus (principal); R11.2 Nausea with vomiting, unspecified; Z98.51 Tubal ligation status

== ENCOUNTER 2017-10-05 21:22 | Emergency (ER) | payer MEDICAID ==
[~2017-10-05] VITALS: Ht 165.1 cm; Wt 102.2 kg
[2017-10-05] MEDS ORDERED: LACTATED RINGERS 1,000 ML IV ONE (21:40)
[2017-10-05] MEDS ORDERED: PROMETHAZINE INJ 25 MG/ML (PHENERGAN) AMP IVP ONE ×2 (21:45→22:30)
[2017-10-05] MEDS ORDERED: methylPREDNISolone 125 MG (Solu-MEDROL) VIAL IVP ONE (21:45)
[2017-10-05] MEDS ORDERED: diphenhydrAMINE 50 MG/ML INJ (BENADRYL) IVP ONE ×2 (21:45→22:30)
[2017-10-05 22:18] LABS: AMPHETAMINE SCREEN, URINE NEGATIVE (NEGATIVE); BARBITURATE SCREEN URINE NEGATIVE (NEGATIVE); BENZODIAZEPINES SCREEN URINE NEGATIVE (NEGATIVE); CANNABINOID SCREEN, URINE NEGATIVE (NEGATIVE); COCAINE SCREEN URINE NEGATIVE (NEGATIVE); METHADONE STAT NEGATIVE (NEGATIVE); METHAMPHETAMINE SCREEN URINE S NEGATIVE (NEGATIVE); OPIATE SCREEN URINE NEGATIVE (NEGATIVE); OXYCODONE STAT NEGATIVE (NEGATIVE); PROPOXYPHENE STAT NEGATIVE (NEGATIVE); TRICYCLIC ANTIDEPRESSANTS SCRE NEGATIVE (NEGATIVE)
--- NOTE | 2017-10-05 22:49 | ED Headache ---
General Chief Complaint: Head/Cervical Problems Stated Complaint: MIGRAINE Nursing Triage Note: c/o finley since 0700. has had 1000mg tylenol, 800mg motrin 2mg imatrex. Light sensitive, finley behind left eye, nausea. Nursing Sepsis Screen: No Definite Risk Source: patient, old records History of Present Illness Time seen by provider: 21:35 Initial Comments C/O "MIGRAINE" SINCE WAKING AT 0700 THIS AM WAS FINE WHEN SHE WENT TO BED PT HAS LONG HISTORY OF HEADACHES/MIGRAINES AND THIS IS EXACTLY THE SAME ALL HER PREVIOUS HEADACHES PT HAS BEEN GETTING BOTOX INJECTIONS BY A DR AT --HAD 3RD SET OF BOTOX ON 11/17, NEXT ONE IS SCHEDULED FOR 12/24/17 HEADACHE IS BEHIND LEFT EYE + NAUSEA, NO VOMITING NO VISION CHANGES NO FEVER OR RECENT ILLNESS PT TOOK TYLENOL X1 AT 1800, AND MOTRIN X 1 AT 2030 PT TOOK 1 IMITREX AT 1800 AND ANOTHER ONE AT 2000 PT STATES NO RELIEF PT STATES SHE HAD NOT HAD ONE FOR SEVERAL MONTHS, THEN HAD ONE A COUPLE OF WEEKS AGO, AND WAS SEEN HERE--TREATED WITH FENTANYL PT HAS HAD MULTIPLE VISITS HERE FOR THIS PROBLEM WELL OTHER PAIN COMPLAINTS, INCLUDING MULTIPLE VISITS FOR CHRONIC DENTAL PAIN PT ALSO KNOWN TO FREQUENT OTHER LOCAL ER'S FOR THESE COMPLAINTS WELL, SOMETIMES MORE THAN 1 ER ON THE SAME DAY PT ALWAYS STATES "TORADOL AND ZOFRAN MAKE IT WORSE" AND WILL REFUSE THESE MEDICATIONS, AND SHE STATES THIS AGAIN TODAY PCP: WAS SEEING DR. LA AT [facility], BUT HE IS NO LONGER THERE Allergies and Home Medications Allergies Coded Allergies: ketorolac (Unverified Allergy, Unknown, makes migraine worse, 10/05/17) Uncoded Allergies: ADHESIVE TAPE (Allergy, Unknown, 03/06/06) ZOFRAN (Allergy, Unknown, makes a migraine worse, 10/05/17) Home Medications Oxycodone HCl/Acetaminophen 1 Each Tablet, 1-2 EACH PO Q4H, #35 Prescribed by: BRANDIE REYNA on 02/11/17 1307 Promethazine HCl 25 Mg Tablet, 25 MG PO Q6H PRN for NAUSEA/VOMITING, #10 Prescribed by: SUMI JUAREZ on 09/11/17 1806 Promethazine HCl 25 Mg Supp.rect, 25 MG RC Q4H, #10 Prescribed by: IRIS SEXTON on 10/05/17 2312 Sumatriptan Succinate 50 Mg Tablet, 50 MG PO DAILY PRN PRN for MIGRAINE, ( Reported) Constitutional: no symptoms reported, No fever Eyes: See HPI, Denies Decreased Acuity, Pain, Denies Photophobia, Denies Vision Changes Ears, Nose, Mouth, Throat: no symptoms reported Respiratory: no symptoms reported Cardiovascular: no symptoms reported Gastrointestinal: see HPI, nausea, No vomiting Genitourinary: no symptoms reported : No LMP: Sep 16, 2017 (S/P BTL) Musculoskeletal: no symptoms reported Skin: no symptoms reported Psychiatric/Neurological: See HPI, Headache, Denies Numbness, Denies Paresthesia, Denies Seizure, Denies Tingling, Denies Weakness Past Xggjhhr-Yubdsh-Cznhdt Hx Patient Social History Alcohol Use: Denies Use Recreational Drug Use: No Smoking Status: Never a Smoker 2nd Hand Smoke Exposure: No Recent Foreign Travel: No Contact w/Someone Who Travel: No Recent Infectious Disease Expo: No Recent Hopitalizations: No Physical Abuse: No Sexual Abuse: No Mistreated: No Fear: No Immunizations Up To Date Tetanus Booster (TDap): Unknown PED Vaccines UTD: No Seasonal Allergies Seasonal Allergies: No Surgeries History of Surgeries: Yes (CYST REMOVAL FROM BACK; D&C; EGD) Surgeries: Gallbladder, Tubal Ligation Respiratory History of Respiratory Disorde: No Cardiovascular History of Cardiac Disorders: No Neurological History of Neurological Disord: Yes Neurological Disorders: Headaches /Migraines 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 System Hx 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 Disorders: No Sexually Transmitted Disease: No HIV/AIDS: No Female 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 Genitourinary History of Genitourinary Disor: No Gastrointestinal History of Gastrointestinal Di: No Musculoskeletal History of Musculoskeletal Dis: No Endocrine History of Endocrine Disorders: No HEENT History of HEENT Disorders: Yes (CHRONIC DENTAL COMPLAINTS) Cancer History of Cancer: No Psychosocial History of Psychiatric Problem: No Suicide Risk Score: 0 Integumentary History of Skin or Integumenta: No Blood Transfusions History of Blood Disorders: No Adverse Reaction to a Blood Tr: No Family Medical History Family Medial History: Diabetes mellitus 19 MOTHER Hypertension 19 MOTHER Physical Exam Vital Signs Vital Sign - Last 12Hours 10/05/17 21:26 Temp 98.0 Pulse 82 Resp 18 B/P (MAP) 130/89 (103) Pulse Ox 96 Capillary Refill : Less Than 3 Seconds General Appearance: obese, other (VERY DRAMATIC, KEEPS EYES COVERED WITH WASHCLOTH, BUT IS NOT PHOTOPHOBIC ON EXAM) HEENT: PERRL/EOMI, normal ENT inspection Neck: non-tender, full range of motion, supple, normal inspection Cardiovascular: normal peripheral pulses, regular rate, rhythm, no murmur Respiratory: normal breath sounds, no respiratory distress, no accessory muscle use Gastrointestinal: normal bowel sounds, non tender, soft Back: normal inspection Extremities: normal inspection Psychiatric: alert, oriented x 3 Crainal Nerves: normal hearing, normal speech, PERRL Coordination/Gait: normal gait Motor/Sensory: no motor deficit, no sensory deficit, no pronator drift Skin: normal color, warm/dry Progress/Results/Core Measures Results/Orders Lab Results Laboratory Tests Test 10/05/17 21:40 Range/Units Urine Opiates Screen NEGATIVE NEGATIVE Urine Oxycodone Screen NEGATIVE NEGATIVE Urine Methadone Screen NEGATIVE NEGATIVE Urine Propoxyphene Screen NEGATIVE NEGATIVE Urine Barbiturates Screen NEGATIVE NEGATIVE Ur Tricyclic Antidepressants Screen NEGATIVE NEGATIVE Urine Phencyclidine Screen NEGATIVE NEGATIVE Urine Amphetamines Screen NEGATIVE NEGATIVE Urine Methamphetamines Screen NEGATIVE NEGATIVE Urine Benzodiazepines Screen NEGATIVE NEGATIVE Urine Cocaine Screen NEGATIVE NEGATIVE Urine Cannabinoids Screen NEGATIVE NEGATIVE My Orders Orders - IRIS SEXTON DO Saline Lock/Iv-Start (10/05/17 21:40) Saline Lock/Iv-Start (10/05/17 21:40) Lactated Ringers (Lr 1000 Ml Iv Solution (10/05/17 21:40) Drug Screen Stat (Urine) (10/05/17 21:40) Methylprednisolone Sod Succ (Solu-Medrol (10/05/17 21:45) Promethazine Injection (Phenergan Injec (10/05/17 21:45) Diphenhydramine Injection (Benadryl Inje (10/05/17 21:45) Promethazine Injection (Phenergan Injec (10/05/17 22:30) Diphenhydramine Injection (Benadryl Inje (10/05/17 22:30) Urine Bedside (10/05/17 22:42) Scopolamine Patch (Transderm-Scop Patch) (10/05/17 23:30) Ondansetron Injection (Zofran Injectio (10/05/17 23:30) Orphenadrine Injection (Norflex Injectio (10/05/17 23:30) Medications Given in ED Current Medications Medications Dose Ordered Sig/Jamal Route Start Time Stop Time Status Last Admin Dose Admin Diphenhydramine HCl 25 mg ONCE ONCE IVP 10/05/17 21:45 10/05/17 21:46 DC 10/05/17 21:48 25 MG Diphenhydramine HCl 25 mg ONCE ONCE IVP 10/05/17 22:30 10/05/17 22:31 DC 10/05/17 22:24 25 MG Lactated Ringer's 1,000 ml @ 0 mls/hr Q0M ONCE IV 10/05/17 21:40 10/05/17 21:43 DC 10/05/17 21:48 1,000 MLS/HR Methylprednisolone Sodium Succinate 125 mg ONCE ONCE IVP 10/05/17 21:45 10/05/17 21:46 DC 10/05/17 21:48 125 MG Orphenadrine Citrate 60 mg ONCE ONCE IV 10/05/17 23:30 10/05/17 23:31 DC 10/05/17 23:30 60 MG Promethazine HCl 25 mg ONCE ONCE IVP 10/05/17 21:45 10/05/17 21:46 DC 10/05/17 21:51 25 MG Promethazine HCl 25 mg ONCE ONCE IVP 10/05/17 22:30 10/05/17 22:31 DC 10/05/17 22:25 25 MG Scopolamine 1.5 mg ONCE ONCE TD 10/05/17 23:30 10/05/17 23:31 DC 10/05/17 23:30 1.5 MG Vital Signs/I&O Vital Sign - Last 12Hours 10/05/17 10/05/17 21:26 23:52 Temp 98.0 Pulse 82 75 Resp 18 18 B/P (MAP) 130/89 (103) Pulse Ox 96 99 Intake and Output 10/06/17 00:00 Intake Total 1000 ml Balance 1000 ml Blood Pressure Mean: 103 Progress Note : Progress Note PT AGAIN REFUSES ZOFRAN AND TORADOL GIVEN SOLU-MEDROL, PHENERGAN, BENADRYL, SCOPOLAMINE AND NORFLEX SYMPTOMS BEGINNING TO EASE PRIOR TO DISMISSAL AND NO VOMITING DURING ER STAY. ADVISED PT I WOULD NOT BE GIVING ANY NARCOTICS FOR THIS CHRONIC PROBLEM ADVISED TO FOLLOW UP WITH HER NEUROLOGIST THIS WEEK FOR FURTHER CARE Departure Impression Impression: Primary Impression: Chronic headaches Disposition: 01 HOME, SELF-CARE Condition: Stable Departure-Patient Inst. Referrals: NO,LOCAL PHYSICIAN (PCP/Family) Primary Care Physician Patient Instructions: Headache, Adult (DC), Migraine Headache (DC) Add. Discharge Instructions: CONTINUE YOUR MEDICATIONS PRESCRIBED TAKE IMITREX, TYLENOL AND MOTRIN AT THE VERY ONSET OF HEADACHE--DO NOT WAIT UNTIL IT BECOMES SEVERE BEFORE YOU TAKE ANY MEDICATIONS FOLLOW UP WITH YOUR NEUROLOGIST AT THIS WEEK FOR FURTHER CARE All discharge instructions reviewed with patient and/or family. Voiced understanding. Scripts Promethazine HCl (Phenergan) 25 Mg Supp.rect 25 MG RC Q4H for Nausea/Vomiting, #10 SUPP.RECT Prov: IRIS SEXTON DO 10/05/17 IRIS SEXTON DO Oct 05, 2017 22:48
[2017-10-05] MEDS ORDERED: PROM25SU43 RC (23:12)
[2017-10-05] MEDS ORDERED: ORPHENADRINE 60 MG/2 ML (NORFLEX) AMP IV ONE (23:30)
[2017-10-05] MEDS ORDERED: ONDANSETRON 4 MG/2 ML (SDV) Z0FRAN IVP ONE (23:30)
[2017-10-05] MEDS ORDERED: SCOPOLAMINE 1.5 MG (TRANSDERM-SCOP) PATCH TD ONE (23:30)
[2017-10-05 23:52] VITALS: BP 139/95
== END 2017-10-05 23:52 | disposition home or self-care (01) ==
LOC: EDUNIT# 21:22 → ER 21:23
DX: G43.909 Migraine, unspecified, not intractable, without status migrainosus (principal); Z98.51 Tubal ligation status
CPT/HCPCS: 80306; 84703; 99282

== ENCOUNTER 2017-12-17 16:33 | Emergency (ER) | payer MEDICAID ==
[~2017-12-17] VITALS: Ht 165.1 cm; Wt 102.2 kg
--- NOTE | 2017-12-17 17:25 | ED Headache ---
General Chief Complaint: Head/Cervical Problems Stated Complaint: MIGRANE Source: patient Exam Limitations: no limitations History of Present Illness Date Seen by Provider: Dec 17, 2017 Time Seen by Provider: 17:23 Initial Comments To ER with reports of a left-sided headache that awakened her from sleep this morning. She took an Imitrex without relief. She has a history of chronic frequent migraines. I see this young lady at [facility] quite frequently as well for migraine complaints. She does follow with neurology and get Botox injections at the [facility] with next scheduled date 12/24 she states. This headache is similar to all previous headaches Timing/Duration: increasing Severity/Quality: pressure Allergies and Home Medications Allergies Coded Allergies: ketorolac (Unverified Allergy, Unknown, makes migraine worse, 10/05/17) Uncoded Allergies: ADHESIVE TAPE (Allergy, Unknown, 03/06/06) ZOFRAN (Allergy, Unknown, makes a migraine worse, 10/05/17) Home Medications Oxycodone HCl/Acetaminophen 1 Each Tablet, 1-2 EACH PO Q4H Prescribed by: BRANDIE REYNA on 02/11/17 1307 Promethazine HCl 25 Mg Tablet, 25 MG PO Q6H PRN for NAUSEA/VOMITING Prescribed by: SUMI JUAREZ on 09/11/17 1806 Promethazine HCl 25 Mg Supp.rect, 25 MG RC Q4H Prescribed by: IRIS SEXTON on 10/05/17 2312 Sumatriptan Succinate 50 Mg Tablet, 50 MG PO DAILY PRN PRN for MIGRAINE, ( Reported) Patient Home Medication List Home Medication List Reviewed: Yes Constitutional: see HPI Eyes: No Symptoms Reported Ears, Nose, Mouth, Throat: no symptoms reported Respiratory: no symptoms reported Cardiovascular: no symptoms reported Genitourinary: no symptoms reported Musculoskeletal: no symptoms reported Skin: no symptoms reported Psychiatric/Neurological: See HPI, Headache Past Jpwhevn-Alrmwk-Ylqqat Hx Patient Social History 2nd Hand Smoke Exposure: No Recent Foreign Travel: No Contact w/Someone Who Travel: No Recent Hopitalizations: No Immunizations Up To Date Tetanus Booster (TDap): Unknown PED Vaccines UTD: No Seasonal Allergies Seasonal Allergies: No Surgeries History of Surgeries: Yes (CYST REMOVAL FROM BACK; D&C; EGD) Surgeries: Gallbladder, Tubal Ligation Respiratory History of Respiratory Disorde: No Cardiovascular History of Cardiac Disorders: No Neurological History of Neurological Disord: Yes Neurological Disorders: Headaches /Migraines 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 System Hx 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 Disorders: No Sexually Transmitted Disease: No HIV/AIDS: No Female 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 Genitourinary History of Genitourinary Disor: No Gastrointestinal History of Gastrointestinal Di: No Musculoskeletal History of Musculoskeletal Dis: No Endocrine History of Endocrine Disorders: No HEENT History of HEENT Disorders: Yes (CHRONIC DENTAL COMPLAINTS) Cancer History of Cancer: No Psychosocial History of Psychiatric Problem: No Integumentary History of Skin or Integumenta: No Blood Transfusions History of Blood Disorders: No Adverse Reaction to a Blood Tr: No Family Medical History Family Medial History: Diabetes mellitus 19 MOTHER Hypertension 19 MOTHER Physical Exam Vital Signs Vital Signs - First Documented 12/17/17 17:22 Temp 97.1 Pulse 80 Resp 16 B/P (MAP) 155/91 (112) Pulse Ox 97 O2 Delivery Room Air Capillary Refill : General Appearance: WD/WN, no apparent distress HEENT: PERRL/EOMI, normal ENT inspection, TMs normal Neck: non-tender, full range of motion Respiratory: normal breath sounds, no respiratory distress, no accessory muscle use Gastrointestinal: normal bowel sounds, non tender Extremities: normal range of motion Psychiatric: alert, oriented x 3 Crainal Nerves: normal hearing, normal speech, PERRL Skin: normal color, warm/dry Comments Keeps her eyes covered with a rag Progress/Results/Core Measures Results/Orders My Orders Orders - EDITH ARTEAGA APRN Prochlorperazine Injection (Compazine In (12/17/17 17:30) Diphenhydramine Injection (Benadryl Inje (12/17/17 17:30) Medications Given in ED Current Medications Medications Dose Ordered Sig/Jamal Route Start Time Stop Time Status Last Admin Dose Admin Diphenhydramine HCl 50 mg ONCE ONCE IM 12/17/17 17:30 12/17/17 17:31 DC 12/17/17 17:30 50 MG Prochlorperazine Edisylate 10 mg ONCE ONCE IM 12/17/17 17:30 12/17/17 17:31 DC 12/17/17 17:30 10 MG Vital Signs/I&O Vital Sign - Last 12Hours 12/17/17 17:22 Temp 97.1 Pulse 80 Resp 16 B/P (MAP) 155/91 (112) Pulse Ox 97 O2 Delivery Room Air Departure Communication (Admissions) Progress Notes 1750- patient is not enthusiastic about leaving as she states her headache is no better. Advised her she needs to go home and let the medicine work and go to sleep. IV opiates are not indicated for migraines and certainly not as frequently as [place] presents to emergency room with complaints of migraines. Impression Impression: Primary Impression: Chronic headaches Disposition: HOME, SELF-CARE Condition: Stable Departure-Patient Inst. Decision time for Depature: 17:25 Referrals: NO,LOCAL PHYSICIAN (PCP/Family) Primary Care Physician Patient Instructions: Headache, Adult (DC) Add. Discharge Instructions: 1. Follow-up with neurology. Call them today to make an appointment to be seen as soon as possible as your headaches are very poorly controlled at this time. They may wish to add daily medication to prevent migraines. All discharge instructions reviewed with patient and/or family. Voiced understanding. EDITH ARTEAGA APRN Dec 17, 2017 17:25
[2017-12-17] MEDS ORDERED: diphenhydrAMINE 50 MG/ML INJ (BENADRYL) IM ONE (17:30)
[2017-12-17] MEDS ORDERED: PROCHLORPERAZINE 10 MG/2ML INJ (COMPAZINE) IM ONE (17:30)
[2017-12-17 17:51] VITALS: BP 155/91
== END 2017-12-17 17:51 | disposition home or self-care (01) ==
LOC: EDUNIT# 16:33 → ER 16:34
DX: R51 Headache (principal); G89.29 Other chronic pain; Z88.6 Allergy status to analgesic agent; Z91.048 Other nonmedicinal substance allergy status; Z88.8 Allergy status to other drugs, medicaments and biological substances; Z98.51 Tubal ligation status
CPT/HCPCS: 96372; 99284

== ENCOUNTER → 2019-06-16 | Outpatient (CLI) | payer MEDICAID ==
[~2019-06-16] MED LIST changes: +BIOT10005 PO; +HYDR-4226 PO; -HYDR-757 PO; +MULT-610 PO; +OMEP20TA33 PO; -OXYC-197 PO; +OXYC1TAB87 PO; +SUMA100T2 PO
== END | disposition home or self-care (01) ==
LOC: PREOP 09:23
PROVIDERS: ATTEND Surgery
DX: Z01.818 Encounter for other preprocedural examination (principal)

== ENCOUNTER → 2022-07-30 | Outpatient (CLI) | payer MEDICAID ==
[~2022-07-30] MED LIST changes: +BOTOX; +CNC1KV IM; +GABA100C PO; +NITR-65 PO; -OXYC-465 PO; +OXYC-556 PO; +PANT20TA2 PO; +PHENTERMINE PO; +TMSL.4C PO
--- NOTE | 2022-07-30 15:44 | Diagnostic Imaging Report ---
INDICATION: Right ureteral stone. COMPARISON with CT scan of 02/23/2017. FINDINGS: No renal or ureteral calculi are demonstrated. There are multiple phleboliths noted in the pelvis. There are surgical clips in the pelvis, as well. The bowel gas pattern is normal. No bony abnormalities. IMPRESSION: No findings are seen that would suggest renal or ureteral calculi at this time. Pelvic calcifications are felt to represent phleboliths. Dictated by: Dictated on workstation # [id number]
== END ==
LOC: RAD 12:41
PROVIDERS: ATTEND Urology
DX: N20.1 Calculus of ureter (principal)
CPT/HCPCS: 74018

== ENCOUNTER → 2022-07-30 | Outpatient (CLI) | payer MEDICAID | END | disposition home or self-care (01) | LOC: PREOP 16:04 | PROVIDERS: ATTEND Urology | DX: Z01.818 Encounter for other preprocedural examination (principal) ==

== ENCOUNTER 2022-07-31 06:36 | Day surgery (SDC) | payer MEDICAID ==
[2022-07-31] VITALS (10 sets, daily range): BP systolic 93–120; BP diastolic 55–87
[~2022-07-31] VITALS: Ht 163.8 cm; Wt 59.0 kg
[~2022-07-31 06:36] MED LIST changes: -BOTOX; -CNC1KV IM; -GABA100C PO; -NITR-65 PO; -PANT20TA2 PO; -PHENTERMINE PO; -TMSL.4C PO
--- NOTE | 2022-07-31 07:19 | Progress Note-Pre Operative ---
Pre-Operative Progress Note Date of Available H&P: Jul 31, 2022 Date H&P Reviewed: Jul 31, 2022 Time H&P Reviewed: 07:19 Changes from last HP NONE Pre-Operative Diagnosis: RT DISTAL URETERAL STONE REMINGTON RIVERA MD Jul 31, 2022 07:19
--- NOTE | 2022-07-31 07:40 | Progress Note-Post Operative ---
Post-Operative Progess Note Surgeon (s)/External Auditor (s) Surgeon REMINGTON RIVERA MD External Auditor: NONE Pre-Operative Diagnosis RT DISTAL URETERAL STONE Post-Operative Diagnosis SAME Procedure & Operative Findings Date of Procedure 07/31/22 Procedure Performed/Findings CYSTOSCOPY, RT URETEROSCOPY WITH STONE LITHOTRIPSY Anesthesia Type GENERAL Estimated Blood Loss Estimated blood loss (mL): NONE Specimens/Packing Specimens Removed NONE Packing: NONE REMINGTON RIVERA MD Jul 31, 2022 07:40
--- NOTE | 2022-07-31 07:41 | Discharge Inst-Urology ---
Discharge Inst-Urology Reconcile Patient Problems Problems Reviewed?: Yes Final Diagnosis RT DISTAL URETERAL STONE Patient Instructions/Follow Up Plan/Assessment/Instructions Please make appointment to been seen in office in 3 weeks. Strain all urines and save any fragments and bring to office appointment Increase oral fluids for 48 hours and then as needed. Diet and Activity as tolerated. If questions or concerns contact your physician Or seek help at emergency department. REMINGTON RIVERA MD Jul 31, 2022 07:41
[2022-07-31] MEDS ORDERED: SCOPOLAMINE 1.5 MG (TRANSDERM-SCOP) PATCH ONE (07:57)
[2022-07-31] MEDS ORDERED: LIDOCAINE PF 1% 5 ML (XYLOCAINE) AMP ONE (08:09)
--- NOTE | 2022-07-31 08:18 | Diagnostic Imaging Report ---
INDICATION: Right ureteral stone, ESWL. TECHNIQUE: Single radiograph of the abdomen 6:54 AM CORRELATION STUDY: 07/30/2022 FINDINGS: Overlying bowel gas and stool obscures detail. Cholecystectomy clips in right upper quadrant. Additional clips in the pelvis. Likely clothing artifact over low midline pelvis. Phleboliths in the pelvis. No definitive calcifications of the renal silhouettes and/or expected course of either ureter. IMPRESSION: 1. Moderate amount of bowel gas and stool. No definitive renal calcification. Dictated by: Dictated on workstation # [id number]
[2022-07-31] MEDS ORDERED: fentaNYL INJ 100 MCG/2 ML AMP ONE ×3 (08:28→10:05)
[2022-07-31] MEDS ORDERED: MIDAZOLAM 2 MG/2 ML (VERSED) VIAL ONE (08:28)
[2022-07-31] MEDS ORDERED: LACTATED RINGERS 1,000 ML IV PRN (08:30)
[2022-07-31] MEDS ORDERED: SCOPOLAMINE 1.5 MG (TRANSDERM-SCOP) PATCH TOP ONE (08:30)
[2022-07-31] MEDS ORDERED: FUROSEMIDE 40 MG/4 ML INJ (LASIX) ONE (08:57)
[2022-07-31] MEDS ORDERED: PHENYLEPHRINE 100 MCG/ML 10 ML (ANESTHESIA) SYR ONE (08:57)
[2022-07-31] MEDS ORDERED: LIDOCAINE PF 2% 5 ML (XYLOCAINE) VIAL ONE (08:57)
[2022-07-31] MEDS ORDERED: proPOfol 200 MG/20 ML (DIPRIVAN) VIAL IV ONE (08:57)
[2022-07-31] MEDS ORDERED: SUCCINYLCHOLINE INJ 100 MG/5 ML SYR/VIAL ONE (08:58)
[2022-07-31] MEDS ORDERED: SEVOFLURANE (ULTANE) 15 ML INHAL SOLN ONE (09:02)
[2022-07-31] MEDS ORDERED: BOTOX (09:03)
[2022-07-31] MEDS ORDERED: PHENTERMINE PO (09:03)
[2022-07-31] MEDS ORDERED: PANT20TA2 PO (09:03)
[2022-07-31] MEDS ORDERED: GABA100C PO (09:03)
[2022-07-31] MEDS ORDERED: CNC1KV IM (09:03)
--- NOTE | 2022-07-31 09:13 | Anesthesia-General Post-Op ---
General Patient Condition Mental Status/LOC: Same as Preop Cardiovascular: Satisfactory Nausea/Vomiting: Absent Respiratory: Satisfactory Pain: Controlled Complications: Absent Post Op Complications Complications None Follow Up Care/Instructions Patient Instructions None needed. Anesthesia/Patient Condition Patient Condition Patient is doing well, no complaints, stable vital signs, no apparent adverse anesthesia problems. No complications reported per nursing. MICHELLE BRUCE CRNA Jul 31, 2022 09:13
[2022-07-31] MEDS ORDERED: PROMETHAZINE INJ 25 MG/ML (PHENERGAN) AMP IVP ONE (09:15)
[2022-07-31] MEDS ORDERED: fentaNYL INJ 100 MCG/2 ML AMP IVP ONE ×2 (09:15→10:08)
[2022-07-31] MEDS ORDERED: PROMETHAZINE INJ 25 MG/ML (PHENERGAN) AMP ONE (09:15)
[2022-07-31] MEDS ORDERED: TMSL.4C PO (10:56)
[2022-07-31] MEDS ORDERED: NITR-65 PO (10:56)
--- NOTE | 2022-07-31 15:18 | OPERATIVE REPORT ---
DATE OF SERVICE: 07/31/2022 PREOPERATIVE DIAGNOSIS: Right distal ureteral stone. POSTOPERATIVE DIAGNOSIS: Right distal ureteral stone. OPERATION PERFORMED: Cystoscopy, right ureteroscopy with stone lithotripsy. SURGEON: Vincent Rivera MD ANESTHESIA: General. COMPLICATIONS: None. DESCRIPTION OF PROCEDURE: Under satisfactory general anesthesia, the patient in lithotomy position, genitalia were prepped and draped in the usual sterile fashion. Cystoscope was introduced in the bladder, visualized all normal except swelling and edema of the right intramural portion of the ureter. Using the foroblique lens, I dilated the right ureteral orifice intramural portion to accommodate a 6.9 Turkish semi-rigid ureteroscope. Stone visualized, it was broken with lithoclast first at a power of 5 in order not to lose the stone proximally and then finished up with power of 12. Stone was very well fragmented. There were no further fragments proximally or distally and some of the fragments flew into the bladder. I removed the ureteroscope, reinserted the cystoscope, emptied the bladder. The patient tolerated the procedure and anesthesia well and was sent to recovery room in stable condition. Job ID: [id number] DocumentID: [id number] Dictated Date: 07/31/2022 09:05:55 Compound Filler Date: 07/31/2022 15:17:47 Dictated By: VINCENT RIVERA MD
== END 2022-07-31 11:15 | disposition home or self-care (01) ==
LOC: SDC 06:36
PROVIDERS: ATTEND Urology
DX: N20.1 Calculus of ureter (principal); Z28.310 Unvaccinated for COVID-19
CPT/HCPCS: 74018; 76000; 84703; 87081